=== PATIENT | female | born 1980 | race Caucasian/White ===

== ENCOUNTER 2017-09-28 14:11 | Emergency (ER) | payer OTHER ==
[2017-09-28 14:19] VITALS: BP 116/61; PULSE 97; TEMP 98.3; BMI 20.3
--- NOTE | 2017-09-28 15:08 | PDOC ---
History of Present Illness - General Chief Complaint: Injury Stated Complaint: Injury left hand/forarm Time Seen by Provider: 09/28/17 14:47 History Source: Patient Exam Limitations: No Limitations - History of Present Illness Initial Comments: 09/28/17 15:03 CHIEF COMPLAINT: Left lateral wrist bruise and pain. HISTORY OF PRESENT ILLNESS: Patient is a 37-year-old female, denies any significant medical history currently on no medication reports yesterday hit left lateral wrist against the doorway. Now with bruise to area. Received patient with Barrett wrap on area there is no swelling, no deformity, no erythema. Occurred: reports: yesterday Severity: reports: moderate Upper Extremity Pain Location: left: wrist Method of Injury: reports: direct blow Modifying Factors: improves with: None Extremity Pain Location - Extremity Pain Location Extremity Pain Locations: left: other Past History - Past Medical History Allergies/Adverse Reactions: Allergies Allergy/AdvReac Type Severity Reaction Status Date / Time acetaminophen [From Tylenol] Allergy Verified 09/28/17 14:19 codeine Allergy Rash Verified 01/27/16 17:29 Home Medications: Ambulatory Orders Abacavir/Dolutegravir/Lamivudi [Triumeq Tablet] 1 each PO DAILY #30 tablet 02/18 Ibuprofen [Motrin -] 400 mg PO TID PRN #40 tablet 02/19/16 Loratadine [Claritin -] 10 mg PO DAILY #30 tablet 02/19/16 Multivitamin with Minerals [Icaps Plus] 1 each PO DAILY #30 tablet 02/19/16 Sulfamethoxazole/Trimethoprim [Bactrim Ds -] 1 tab PO WEEKLY #12 tablet COPD: No Diabetes: No Thyroid Disease: Yes (10/04 thyroid u/s: nodular goiter, suspicious for underlying thyroiditis) - Immunization History Immunization Up to Date: Yes - Suicide/Smoking/Psychosocial Hx Smoking History: Current every day smoker Have you smoked in the past 12 months: Yes Number of Cigarettes Smoked Daily: 20 Cigars Per Day: 0 Information on smoking cessation initiated: Yes 'Breaking Loose' booklet given: 01/27/16 Hx Alcohol Use: No Drug/Substance Use Hx: No Substance Use Type: None Hx Substance Use Treatment: No Review of Systems - Review of Systems Constitutional: No: Symptoms Reported HEENTM: No: Symptoms Reported Respiratory: No: Symptoms reported Cardiac (ROS): No: Symptoms Reported ABD/GI: No: Symptoms Reported : No: Symptoms Reported Musculoskeletal: No: Joint Pain, Joint Swelling Integumentary: Yes: Bruising. No: Erythema Neurological: No: Symptoms reported, Paresthesia, Tingling, Tremors Hematologic/Lymphatic: No: Symptoms Reported All Other Systems: Reviewed and Negative *Physical Exam - Vital Signs Last Vital Signs Temp Pulse Resp BP Pulse Ox 98.3 F 97 H 18 116/61 100 09/28/17 14:17 09/28/17 14:17 09/28/17 14:17 09/28/17 14:17 09/28/17 14:17 - Physical Exam General Appearance: Yes: Appropriately Dressed. No: Apparent Distress Respiratory/Chest: positive: Lungs Clear, Normal Breath Sounds Extremity: negative: Swelling, Erythema Integumentary: positive: Bruising. negative: Swelling, Ecchymosis Neurologic: positive: Alert, Normal Mood/Affect Procedures - Splinting Splint Location: Left: Wrist Pre-Proc Neuro Vasc Exam: normal Hand-Made Type: orthoglass Splint Type: Yes: Short Arm Post-Proc Neuro Vasc Exam: normal Barrett Bandage: 2" Sling: No Complications: No Post splint xray: No Good repositioning: No ED Treatment Course - RADIOLOGY Radiology Studies Ordered: Category Date Time Status WRIST-LEFT [RAD] Stat Radiology 09/28/17 14:51 Ordered Medical Decision Making - Medical Decision Making 09/28/17 15:06 A/P: Patient with injury to left wrist. There is a bruise noted to left lateral wrist there is no deformity no erythema or edema. Patient sent to x-ray. 09/28/17 15:29 X-ray demonstrates a possible triquetral fracture only seen on lateral view not area of tenderness. I will place splint, patient to follow-up with orthopedics for reevaluation. Ice and elevate, Motrin for pain. *DC/Admit/Observation/Transfer Diagnosis at time of Disposition: Left wrist injury Qualifiers: Encounter type: initial encounter Qualified Code(s): S69.92XA - Unspecified injury of left wrist, hand and finger(s), initial encounter - Discharge Dispostion Disposition: HOME Condition at time of disposition: Stable Admit: No - Referrals Referrals: Lis Ferguson MOTION STUDY ANALYST [Primary Care Provider] - - Patient Instructions Additional Instructions: 1. Please return to the emergency department with any redness, swelling, increased pain, or any other concerns. 2. Keep splint on until tomorrow evaluate pain level 3. Please follow up in the office of Dr. Wilson within a week if pain persists. 4. No weightbearing 5. Ice and elevate when at rest. 6. Motrin for pain - Post Discharge Activity Forms/Work/School Notes: Back to Work
== END 2017-09-28 16:05 | disposition home or self-care (01) ==
LOC: JERFT 14:11
PROC: 2W3DX1Z Immobilization of Left Lower Arm using Splint (ICD-10-PCS; principal; 2017-09-28)
DX: S69.82XA Other specified injuries of left wrist, hand and finger(s), initial encounter (principal); W22.8XXA Striking against or struck by other objects, initial encounter; Y93.89 Activity, other specified; Y92.89 Other specified places as the place of occurrence of the external cause; Y99.8 Other external cause status; E04.1 Nontoxic single thyroid nodule
CPT/HCPCS: 29125; 73110-TC-LR-FY; 99281-25

== ENCOUNTER 2017-10-29 19:03 | Inpatient (IN) | payer OTHER ==
[2017-10-29] MEDS ORDERED: IBUPROFEN 600 MG TABLET (FP) PO ONE (19:19)
--- NOTE | 2017-10-29 19:20 | PDOC ---
Rapid Medical Evaluation Time Seen by Provider: 10/29/17 19:15 Medical Evaluation: Allergies Allergy/AdvReac Type Severity Reaction Status Date / Time acetaminophen [From Tylenol] Allergy Verified 09/28/17 14:19 codeine Allergy Rash Verified 01/27/16 17:29 10/29/17 19:16 I have performed a brief in-person evaluation of this patient. The patient presents with a chief complaint of: fever nasal congestion and bodyaches Pertinent physical exam findings: Lungs CTAB. Multiple aphthous ulcers present in oropharynx I have ordered the following: upreg, Motrin The patient will proceed to the ED for further evaluation. Discharge Disposition - Diagnosis Fever - Referrals - Patient Instructions - Post Discharge Activity
[2017-10-29 19:22] VITALS: BMI 19.5
[2017-10-29] MEDS ORDERED: SODIUM CHLORIDE 1,000 ML IV STA ×2 (20:42→20:43)
[2017-10-29] MEDS ORDERED: ACETAMINOPHEN 325 MG TABLET (FP) PO ONE (20:43)
--- NOTE | 2017-10-29 20:43 | PDOC ---
History of Present Illness - General History Source: Patient <EthanelzbietaAshwin - Last Filed: 10/30/17 00:55> - General History Source: Patient Exam Limitations: No Limitations - History of Present Illness Initial Comments: 10/29/17 20:48 The patient is a 37 year old female with a significant PMH of goiter and HIV who presents to the emergency department with 2-3 days of generalized malaise, fever, sore throat, dry cough, and body aches. The patient notes she was previously on Truvada but does not take it anymore. The patient states shes recently moved to [place] from [place] and does not have a PCP she follows with yet. The patient denies chest pain, shortness of breath, headache and dizziness. Denies fever, chills, nausea, vomit, diarrhea and constipation. Denies dysuria, frequency, urgency and hematuria. Allergies: Codeine. Past surgical history: . Social history: Current everyday smoker. No reported alcohol or drug use. PCP: Dr. Lis Ferguson <Calvin Hilario - Last Filed: 10/30/17 01:19> - General Chief Complaint: SIRS, Suspected/Possible Stated Complaint: FATIGUE Time Seen by Provider: 10/29/17 19:15 Past History - Past Medical History COPD: No Diabetes: No Thyroid Disease: Yes (10/04 thyroid u/s: nodular goiter, suspicious for underlying thyroiditis) - Immunization History Immunization Up to Date: Yes - Suicide/Smoking/Psychosocial Hx Smoking History: Current every day smoker Have you smoked in the past 12 months: Yes Number of Cigarettes Smoked Daily: 20 Cigars Per Day: 0 Information on smoking cessation initiated: No 'Breaking Loose' booklet given: 01/27/16 Hx Alcohol Use: No Drug/Substance Use Hx: No Substance Use Type: None Hx Substance Use Treatment: No <Ashwin García - Last Filed: 10/30/17 00:55> <Calvin Hilario - Last Filed: 10/30/17 01:19> - Past Medical History Allergies/Adverse Reactions: Allergies Allergy/AdvReac Type Severity Reaction Status Date / Time codeine Allergy Rash Verified 10/29/17 19:17 Home Medications: Ambulatory Orders Acetaminophen [Tylenol] 650 mg PO QID PRN 10/29/17 Azithromycin [Zithromax -] 250 mg PO UTDICT #6 tab 10/29/17 Emtricitabine/Tenofovir (Tdf) [Truvada 200 mg-300 mg Tablet] 1 each PO DAILY # 30 tablet 10/29/17 Ibuprofen [Motrin] 600 mg PO TID #30 tablet 10/29/17 Review of Systems - Review of Systems Able to Perform ROS?: Yes Comments:: 10/29/17 20:48 CONSTITUTIONAL: (+) Generalized malaise. (+) Fever. (+) Body aches. Absent: chills, diaphoresis, generalized weakness, loss of appetite HEENT: (+) Sore throat. Absent: rhinorrhea, nasal congestion, throat pain, throat swelling, difficulty swallowing, mouth swelling, ear pain, eye pain, visual Changes CARDIOVASCULAR: Absent: chest pain, syncope, palpitations, irregular heart rate, lightheadedness , peripheral edema RESPIRATORY: (+) Dry cough. Absent: shortness of breath, dyspnea with exertion, orthopnea, wheezing, stridor , hemoptysis GASTROINTESTINAL: Absent: abdominal pain, abdominal distension, nausea, vomiting, diarrhea, constipation, melena, hematochezia GENITOURINARY: Absent: dysuria, frequency, urgency, hesitancy, hematuria, flank pain, genital pain MUSCULOSKELETAL: Absent: myalgia, arthralgia, joint swelling SKIN: Absent: rash, itching, pallor HEMATOLOGIC/IMMUNOLOGIC: Absent: easy bleeding, easy bruising, lymphadenopathy, frequent infections ENDOCRINE: Absent: unexplained weight gain, unexplained weight loss, heat intolerance, cold intolerance NEUROLOGIC: Absent: headache, focal weakness or paresthesias, dizziness, unsteady gait, seizure, mental status changes, bladder or bowel incontinence PSYCHIATRIC: Absent: anxiety, depression, suicidal or homicidal ideation, hallucinations. <Calvin Hilario - Last Filed: 10/30/17 01:19> *Physical Exam - Vital Signs Last Vital Signs Temp Pulse Resp BP Pulse Ox 101.2 F H 130 H 18 99/35 98 10/29/17 19:20 10/29/17 19:20 10/29/17 19:20 10/29/17 19:20 10/29/17 19:20 <Ashwin García - Last Filed: 10/30/17 00:55> - Vital Signs Last Vital Signs Temp Pulse Resp BP Pulse Ox 101.2 F H 130 H 18 99/35 98 10/29/17 19:20 10/29/17 19:20 10/29/17 19:20 10/29/17 19:20 10/29/17 19:20 - Physical Exam Comments: 10/29/17 20:48 GENERAL: (+) Mild distress. Well developed, well nourished. Awake and alert. HEENT: (+) Dry oral mucosa. (+) White plaques on hard palate and tongue. Normocephalic, atraumatic. PERRLA, EOMI. No conjunctival pallor. Sclera are non- icteric.Oropharynx is clear. NECK: Supple. Full ROM. No JVD. Carotid pulses 2+ and symmetric, without bruits. No thyromegaly. No lymphadenopathy. CARDIOVASCULAR: Regular rate and rhythm. No murmurs, rubs, or gallops. Distal pulses are 2+ and symmetric. PULMONARY: No evidence of respiratory distress. Lungs clear to auscultation bilaterally. No wheezing, rales or rhonchi. ABDOMINAL: Soft. Non-tender. Non-distended. No rebound or guarding. No organomegaly. Normoactive bowel sounds. MUSCULOSKELETAL Normal range of motion at all joints. No bony deformities or tenderness. No CVA tenderness. EXTREMITIES: No cyanosis. No clubbing. No edema. No calf tenderness. SKIN: Warm and dry. Normal capillary refill. No rashes. No jaundice. NEUROLOGICAL: Alert, awake, appropriate. Cranial nerves 2-12 intact. No deficits to light touch and temperature in face, upper extremities and lower extremities. No motor deficits in the in face, upper extremities and lower extremities. Normoreflexic in the upper and lower extremities. Normal speech. Toes are downgoing bilaterally. Gait is normal without ataxia. PSYCHIATRIC: Cooperative. Good eye contact. Appropriate mood and affect. <Calvin Hilario - Last Filed: 10/30/17 01:19> Heart Score/ECG Review #1 10/30/17 01:19 EKG done at 1:14 Vent rate 89 bpm Normal sinus rhythm Nonspecific T wave abnormality Abnormal ECG <Calvin Hilario - Last Filed: 10/30/17 01:19> ED Treatment Course - LABORATORY CBC & Chemistry Diagram: 10/29/17 21:05 10/29/17 21:05 <Ashwin García - Last Filed: 10/30/17 00:55> - LABORATORY CBC & Chemistry Diagram: 10/29/17 21:05 10/29/17 21:05 <Calvin Hilario - Last Filed: 10/30/17 01:19> Medical Decision Making - Medical Decision Making 10/30/17 00:55 Dr. García: The scribe's documentation has been prepared under my direction and personally reviewed by me in its entirery. I confirm that the note above accurately reflects all work, treatment, procedures, and medical decision making performed by me. Pt found to have a YESY infiltrate. However, pt feels better than when she presented WBC 8.4, Lactic Acid 1. will admit <Ashwin García - Last Filed: 10/30/17 00:55> *DC/Admit/Observation/Transfer - Discharge Dispostion Decision to Admit order: Yes <Ashwin García - Last Filed: 10/30/17 00:55> - Attestations Scribe Attestion: 10/29/17 20:49 Documentation prepared by Calvin Hilario, acting as medical field representative for Ashwin García DO. <Calvin Hilario - Last Filed: 10/30/17 01:19> Diagnosis at time of Disposition: Fever, Human immunodeficiency virus (HIV) disease Pneumonia Qualifiers: Pneumonia type: due to unspecified organism Laterality: left Lung location: upper lobe of lung Qualified Code(s): J18.1 - Lobar pneumonia, unspecified organism - Discharge Dispostion Condition at time of disposition: Stable
[2017-10-29 21:18] LABS: HEMATOCRIT 27.9 % (32.4-45.2); HEMOGLOBIN 9.3 GM/dL (10.7-15.3); MCHC 33.2 g/dl (32.0-36.0); MEAN CELL VOLUME 84.4 fl (80-96); MEAN PLT VOLUME 7.6 fl (7.5-11.1); PLATELET COUNT 210 K/MM3 (134-434); RDW 14.2 % (11.6-15.6); WHITE BLOOD COUNT 8.4 K/mm3 (4.0-10.0)
[2017-10-29 21:46] LABS: ALBUMIN 2.5 g/dl (3.4-5.0); ANION GAP 7 (8-16); BLOOD UREA NITROGEN 16 mg/dL (7-18); CALCIUM 7.8 mg/dL (8.5-10.1); CHLORIDE 103 mmol/L (98-107); CO2 25 mmol/L (21-32); CREATININE 0.7 mg/dL (0.55-1.02); GLUCOSE,RANDOM 75 mg/dL (74-106); POTASSIUM 4.1 mmol/L (3.5-5.1); SGOT/AST 24 U/L (15-37); SGPT/ALT 7 U/L (12-78); SODIUM 135 mmol/L (136-145)
[2017-10-29 21:48] LABS: ALK PHOS 87 U/L (45-117); BILIRUBIN,TOTAL 0.3 mg/dL (0.2-1.0); TOT PROT 9.3 g/dl (6.4-8.2)
[2017-10-29 22:42] LABS: PLATELET ESTIMATE ADEQUATE
[2017-10-29 23:18] LABS: URINE APPEARANCE SLCLOUDY; URINE BILIRUBIN NEGATIVE (<2.0 mg/dL); URINE COLOR AMBER; URINE GLUCOSE (UA) NEGATIVE (NEGATIVE); URINE KETONE TRACE (NEGATIVE); URINE LEUK ESTERASE NEGATIVE (NEGATIVE); URINE NITRITE NEGATIVE (NEGATIVE); URINE PROTEIN 3+ (NEGATIVE)
[2017-10-29 23:33] LABS: EPI CELLS FEW /HPF (FEW); URINE MUCUS MANY
[2017-10-29] MEDS ORDERED: AZITHROMYCIN 250 MG TABLET PO STA (23:43)
[2017-10-29] MEDS ORDERED: IBUPROFEN 600 MG TABLET (FP) PO STA (23:43)
[2017-10-29] MEDS ORDERED: AZITHROMYCIN 250 MG TABLET ONE (23:52)
[2017-10-30] MEDS ORDERED: PIPERACILLIN/TAZOB 3.375 GM 3.375 GM in DEXTROSE 5%-WATER - 50 ML IVPB ONE (00:50)
[2017-10-30] MEDS ORDERED: VANCOMYCIN 1,000 MG in DEXTROSE 5%-WATER - 250 ML IVPB ONE (00:50)
--- NOTE | 2017-10-30 01:18 | HP ---
CHIEF COMPLAINT: fever and body aches x2 PCP: Dr. Lis Ferguson HISTORY OF PRESENT ILLNESS: 37yo woman, active smoker, with PMH of goiter and HIV (dx Jun 2008, not on HAART for past 2years, CD4/viral counts unknown) who presents to the ED with fever, malaise, myalgia, and sore throat for the past 2 days. She had previously followed at [facility] with Dr. Ferguson and was taking Truvada. However , she moved to [place] and has not seen a PCP for the past 1-2 years. She recently moved back to the area, and is planning to re-establish care at [facility]. Patient reports noticing white plaques on the roof of her mouth this morning. Denies odynophagia or dysphagia. No prior h/o thrush. Her last hospitalization was when she had 8 years ago. Patent denies any recent sick contacts. Denies chest pain, ROMERO, dizziness, n/v. Denies dysuria, frequency, urgency and hematuria. ED course was notable: (1) VS: T 101.2, HR 130, BP 99/35, RR 18, pSaO2 98% on RA (1) Chest CT: YESY PNA, bilateral diffuse GGO (2) s/p 2L NS (3) Received 1x Azithromycin 500mg, Vanco 1gm, and Zosyn 3.375mg Recent Travel: none PAST MEDICAL HISTORY: 09/2013 thyroid u/s: nodular goiter, suspicious for underlying thyroiditis 01/2016 - Shingles treated with Acyclovir PAST SURGICAL HISTORY: - 2008 BTL 2008 LEEP 11/2010 Social History: Smoking: current, 1ppd x 20years Alcohol: rare Drugs: Marijuana, no IVDU Family History: non-contributory Allergies codeine Allergy (Verified 10/29/17 19:17) --> Rash HOME MEDICATIONS: None REVIEW OF SYSTEMS CONSTITUTIONAL: fever, chills, generalized weakness, malaise Absent: diaphoresis, loss of appetite, weight change HEENT: +throat pain Absent: rhinorrhea, nasal congestion, , throat swelling, difficulty swallowing , mouth swelling, ear pain, eye pain, visual changes CARDIOVASCULAR: Absent: chest pain, syncope, palpitations, irregular heart rate, lightheadedness , peripheral edema RESPIRATORY: Absent: cough, shortness of breath, dyspnea with exertion, orthopnea, wheezing, stridor, hemoptysis GASTROINTESTINAL: Absent: abdominal pain, abdominal distension, nausea, vomiting, diarrhea, constipation, melena, hematochezia GENITOURINARY: Absent: dysuria, frequency, urgency, hesitancy, hematuria, flank pain, genital pain MUSCULOSKELETAL: +myalgia Absent: arthralgia, joint swelling, back pain, neck pain SKIN: Absent: rash, itching, pallor HEMATOLOGIC/IMMUNOLOGIC: Absent: easy bleeding, easy bruising, lymphadenopathy, frequent infections ENDOCRINE: Absent: unexplained weight gain, unexplained weight loss, heat intolerance, cold intolerance NEUROLOGIC: Absent: headache, focal weakness or paresthesias, dizziness, unsteady gait, seizure, mental status changes, bladder or bowel incontinence PSYCHIATRIC: Absent: anxiety, depression, suicidal or homicidal ideation, hallucinations. PHYSICAL EXAMINATION Vital Signs - 24 hr 10/29/17 19:20 Temperature 101.2 F H Pulse Rate 130 H Respiratory 18 Rate Blood Pressure 99/35 O2 Sat by Pulse 98 Oximetry (%) GENERAL: thin, young appearing woman, lying comfortably in bed, aaox3 HEENT: sclera anicteric, conjunctiva clear, non-scrabble white plaques on hard palate, tongue and posterior oropharynx, dry MM, +cold sore on R side of lower lip NECK: supple, no nuchal rigidity LUNGS: CTAB, no wheezing, rales or rhonchi appreciated, no accessory muscle use HEART: rrr, normal s1/s2, no m/r/g ABDOMEN: soft, NTND MUSCULOSKELETAL: Normal range of motion at all joints LOWER EXTREMITIES: 2+ DP pulses, wwp, no edema SKIN: well-healed pigmented Shingle scars on L anterior thurston CBC, BMP 10/29/17 21:05 10/29/17 21:05 Hepatic Panel Total Bilirubin 0.3 mg/dL (0.2-1.0) 10/29/17 21:05 AST 24 U/L (15-37) 10/29/17 21:05 ALT 7 U/L (12-78) L 10/29/17 21:05 Alkaline Phosphatase 87 U/L (45-117) 10/29/17 21:05 Albumin 2.5 g/dl (3.4-5.0) L 10/29/17 21:05 Microbiology 10/29/17 19:40 Nasopharyngeal Swab Influenza Types A,B Antigen (ZAC) - Preliminary 10/29/17 19:40 Nasopharyngeal Swab - Preliminary EKG: NSR, rate 89, non-specific T wave abnormality, QTc 440 ASSESSMENT/PLAN: 37yo woman with PMH of HIV (not on HAART, CD4/viral count uknown) who presents with 2 days of fever, myalgia, generalized malaise and found to be septic likely 2/2 YESY PNA. #sepsis 2/2 YESY PNA, Flu neg -ID consulted -Check final CT Chest report -Levaquin 750mg IV daily and Bactrim Ds 1 tablet daily -> first doses ordered for 10AM -Check sputum culture -Check Quantiferon Gold -Check Urine Legionella Ag, Histoplasma Urine Ag, Cryptococcal serum Ag, Respiratory viral PCR -follow up Blood and Urine Cultures -IVF NS@100cc/hr -Tylenol PRN for fever or pain #HIV -ID consulted -Check CD4 and viral counts #herpes labialis -Valacyclovir 1gm PO BID #oral candidiasis without odynophagia or dysphagia -Nystatin swish and swallow #normocytic anemia, currently menstruating, no prior h/o anemia -Check Fe studies #nicotine dependence -counseled on cessation #FEN NS@100cc/hr hypoNa noted Regular diet #PPX - HSQ #DISPO: m/s FULL code Plan d/w Dr. Angeles Humphreys MD PGY1 - Internal Medicine, Night Traveling Operator Visit type - Emergency Visit Emergency Visit: Yes ED Registration Date: 10/30/17 Care time: The patient presented to the Emergency Department on the above date and was hospitalized for further evaluation of their emergent condition. - New Patient This patient is new to me today: Yes Date on this admission: 10/30/17 - Critical Care Critical Care patient: No Hospitalist Screening - Colonoscopy Questionnaire Colonoscopy Questionnaire: Colonoscopy Questionnaire - Patient: 50 - 75 years old and never had a screening colonoscopy: No History of colon or rectal polyps, or CA: Unknown History of IBD, Crohn's disease or UC: Unknown History of abdominal radiation therapy as a child: Unknown - Relative: 1 with colon or rectal CA, or polyps at age 60 or younger: Unknown Colon or rectal CA diagnosed at age 45 or younger: Unknown Multiple relatives with colon or rectal CA: Unknown - Outcome: Screening Result: Negative Screen
[2017-10-30] MEDS ORDERED: VANCOMYCIN 1 GRAM (PRE-DOCKED) 1,000 MG/250 ML BAG IVPB ONE (01:48)
[2017-10-30] MEDS ORDERED: PIPERACILLIN/TAZOB 3.375 GM 3.375 GM/50 ML BAG IVPB ONE (01:49)
--- NOTE | 2017-10-30 06:22 | PN ---
Teaching Attending Note Name of Resident: Jaimee Humphreys ATTENDING PHYSICIAN STATEMENT I saw and evaluated the patient. Chart, data, imaging reviewed. I reviewed the resident's note and discussed the case with the resident. I agree with the resident's findings and plan as documented. SUBJECTIVE: 37yo woman, active smoker, with PMH of goiter and HIV (dx Jun 2008), off HAART for past 2years due to noncompliance, CD4/viral counts unknown at this time) who c/o fevers, chills, and malaise past several days. Patient has been to [place] recently, but denied any travels anywhere else. Denied any recent sick contacts. Previously followed at [facility] for HIV care. CT scan in ER showed left upper lobe infiltrate, given vancomycin, zosyn, azithromycin. OBJECTIVE: Last Vital Signs Temp Pulse Resp BP Pulse Ox 101.2 F H 130 H 18 99/35 98 10/29/17 19:20 10/29/17 19:20 10/29/17 19:20 10/29/17 19:20 10/29/17 19:20 general - cachectic, nontoxic appearing heent- at, nc, no icteric sclera , oral thrush, herpes labialis neck -supple cv- s1+s2+rrr chest - cta b/l abdomen- soft, nt, bs+ ext- no pedal edema skin- no rashes msk- no joint pain Abnormal Lab Results 10/29/17 10/29/17 10/29/17 21:05 21:05 23:02 RBC 3.30 L D Hgb 9.3 L D Hct 27.9 L D Neutrophils % (Manual) 88.0 H Lymphocytes % (Manual) 3.0 L Sodium 135 L Anion Gap 7 L Calcium 7.8 L ALT 7 L Total Protein 9.3 H Albumin 2.5 L Urine Protein 3+ H Urine Ketones Trace H Urine Blood 2+ H Urine Urobilinogen 2.[address] reviewed by me- left upper lobe infiltrate with b/l ground glass changes pending official read ASSESSMENT AND PLAN: #37yo woman HIV+ off ART for 1-2 years due to noncompliance with sepsis likely secondary to CAP as evidenced by left lung infiltrate on ct. Hemodynamically stable. Unknown cd4 count. +oral thrush. -admit to med/surg -blood cultures x2 -sputum culture -histoplasma urine ag -cryptococcal serum ag -quantiferon gold -respiratory multiplex pxr -levofloxacin 750mg IV q24hrs -ID consult -cd4 count -hiv viral pcr -nystatin swish and swallow -valtrex for herpes labialis -IV fluid hydration -supplemental 02 via nasal cannula DVT ppx- heparin sc -
[2017-10-30] MEDS ORDERED: HEPARIN NA (PORCINE) 5,000 UNITS/ML 1ML VIAL ONE (06:33)
[2017-10-30] MEDS: SODIUM CHLORIDE 1,000 ML IV SCH ×2 (06:35→17:39)
[2017-10-30] MEDS: NYSTATIN 500,000 UNITS/5 ML SUSPENSION PO SCH ×2 (06:35→13:00)
[2017-10-30] MEDS: HEPARIN NA (PORCINE) 5,000 UNITS/ML 1ML VIAL SQ SCH ×3 (06:40→21:48)
[2017-10-30] MEDS ORDERED: ACETAMINOPHEN 325 MG TABLET (FP) ONE ×2 (07:02→14:20)
[2017-10-30] MEDS: ACETAMINOPHEN 325 MG TABLET (FP) PO PRN ×2 (07:03→19:38)
[2017-10-30 07:20] LABS: BASO % 0.6 % (0-2.0); HEMOGLOBIN 9.3 GM/dL (10.7-15.3); LYMPH % 2.7 % (8-40); MCHC 33.2 g/dl (32.0-36.0); MEAN CELL VOLUME 84.3 fl (80-96); MEAN PLT VOLUME 8.3 fl (7.5-11.1); MONO % 3.2 % (3.8-10.2); NEUT % 93.5 % (42.8-82.8); PLATELET COUNT 214 K/MM3 (134-434); RBC 3.32 M/mm3 (3.60-5.2); RDW 14.5 % (11.6-15.6); WHITE BLOOD COUNT 8.7 K/mm3 (4.0-10.0)
[2017-10-30 08:46] LABS: CHLORIDE 107 mmol/L (98-107); GLUCOSE,RANDOM 71 mg/dL (74-106); POTASSIUM 3.9 mmol/L (3.5-5.1); SODIUM 137 mmol/L (136-145)
[2017-10-30 08:54] LABS: ALBUMIN 2.3 g/dl (3.4-5.0); ALK PHOS 95 U/L (45-117); ANION GAP 8 (8-16); BILIRUBIN,TOTAL 0.4 mg/dL (0.2-1.0); BLOOD UREA NITROGEN 15 mg/dL (7-18); CALCIUM 7.5 mg/dL (8.5-10.1); CO2 22 mmol/L (21-32); CREATININE 0.7 mg/dL (0.55-1.02); SGOT/AST 28 U/L (15-37); SGPT/ALT 8 U/L (12-78); TOT PROT 8.5 g/dl (6.4-8.2)
[2017-10-30] MEDS: valACYclovir HCL 500 MG TABLET (FP) PO SCH ×2 (09:26→22:50)
[2017-10-30] MEDS ORDERED: SULFAMETHOXAZOLE/TRIMETHOPRIM 800MG/160MG D.S. TABLET PO SCH (10:00)
--- NOTE | 2017-10-30 11:42 | EKG ---
Test Reason : Blood Pressure : / mmHG Vent. Rate : 089 BPM Atrial Rate : 089 BPM P-R Int : 118 ms QRS Dur : 082 ms QT Int : 362 ms P-R-T Axes : 045 068 004 degrees QTc Int : 440 ms NORMAL SINUS RHYTHM NONSPECIFIC T WAVE ABNORMALITY ABNORMAL ECG NO PREVIOUS ECGS AVAILABLE Confirmed by GOPI JAIN, FAMILIA ([id number]) on 10/30/2017 11:41:54 AM Referred By: Confirmed By:FAMILIA NGUYỄN MD
--- NOTE | 2017-10-30 13:41 | CON.ID ---
Consult Referred by:: Dr. Humphreys Reason for Consultation:: Pneumonia, HIV - History of Present Illness History of Present Illness: The patient is a 37 yo f w/ PMH HIV who comes into the ED c/o fever, malaise and sore throat for the past 2 days. She also endorses thrush. Patient was following at the [facility], then was lost to follow up for 2 years after moving to [place]. Last CD4 count 151 in 01/2016. Per the patient, she has not been compliant with her ART or PCP prophylaxis for the past 2 years. CXR shows YESY mass/consolidation. CT Chest shows the same with b/l infiltrates. Patient c/o left shoulder pain on examination. Patient denies CP, Cough, hemoptysis, abdominal pain, diarrhea. - History Source History Provided By: Patient Limitations to Obtaining History: No Limitations - Past Medical History ...LMP: 08/13/13 Infectious Disease: Yes: HIV - Alcohol/Substance Use Hx Alcohol Use: No History of Substance Use: reports: None - Smoking History Smoking history: Current every day smoker Have you smoked in the past 12 months: Yes Aproximately how many cigarettes per day: 20 Home Medications - Allergies Allergies/Adverse Reactions: Allergies Allergy/AdvReac Type Severity Reaction Status Date / Time codeine Allergy Rash Verified 10/29/17 19:17 - Home Medications Home Medications: Ambulatory Orders Acetaminophen [Tylenol] 650 mg PO QID PRN 10/29/17 Azithromycin [Zithromax -] 250 mg PO UTDICT #6 tab 10/29/17 Emtricitabine/Tenofovir (Tdf) [Truvada 200 mg-300 mg Tablet] 1 each PO DAILY # 30 tablet 10/29/17 Ibuprofen [Motrin] 600 mg PO TID #30 tablet 10/29/17 Review of Systems - Review of Systems Constitutional: reports: Chills, Fever, Unintentional Wgt. Loss (25 lbs) HENT: reports: Other (white rash in mouth). denies: Difficult Swallowing Cardiovascular: reports: Shortness of Breath. denies: Chest Pain, Edema, Palpitations Respiratory: reports: SOB. denies: Cough, Hemoptysis, SOB on Exertion, Wheezing Gastrointestinal: denies: Abdominal Pain, Constipation, Diarrhea, Vomiting Neurological: reports: No Symptoms Physical Exam Vital Signs: Vital Signs Temperature 99.3 F 10/30/17 07:08 Pulse Rate 107 H 10/30/17 07:08 Respiratory Rate 18 10/30/17 07:08 Blood Pressure 104/66 10/30/17 07:08 O2 Sat by Pulse Oximetry (%) 97 10/30/17 07:08 Constitutional: Yes: Well Nourished, No Distress, Calm HENT: Yes: Atraumatic, Normocephalic, Other (white dots on patient's palate and tongue. no pharyneal erythema.) Cardiovascular: Yes: Regular Rate and Rhythm, S1, S2. No: JVD, Gallop, Murmur, Rub Respiratory: Yes: Regular, Diminished (breath sounds diminished on left in mid lung and at base) Gastrointestinal: Yes: Normal Bowel Sounds, Soft. No: Tenderness Extremities: Yes: Other (scarring on b/l lower extremities from previous zoster infection) Neurological: Yes: Alert, Oriented Psychiatric: Yes: Alert, Oriented Labs: CBC, BMP 10/30/17 06:44 10/30/17 06:44 Imaging - Results Chest X-ray: Report Reviewed, Image Reviewed Cat Scan: Report Reviewed, Image Reviewed Assessment/Plan The patient is a 37 yo f w/ PMH HIV admitted for YESY consolidation as well as fever and chills. #YESY consolidation -Patient immunocompromised with YESY consolidation; must r/o TB @ cover for PCP, CAP -airborne iso -Sputum AFB/JENNIE x3 -quantiferon gold -urines for PNA -Vancomycin 1g Q24 -Zosyn 3.375g Q8H -Azithromycin 500mg daily -f/u BCx, UCx -f/u crypto agen -flu swab negative #Oral candidiasis -nystatin swish and swallow #AIDS -last CD4+ 151 in january -Patient off ART for >2years -will hold off on resuming ART for now -Case D/w Dr. Cornelius
--- NOTE | 2017-10-30 15:03 | PN ---
<Marilyn Pardo - Last Filed: 10/30/17 15:30> Physical Exam: SUBJECTIVE: Patient seen and examined. She is complaining odf pain on the left side of her chest. She also reports SOB and occasional cough. OBJECTIVE: Vital Signs Period Temp Pulse Resp BP Sys/Leiva Pulse Ox Last 24 Hr 99.3 F-101.2 F 107-130 16-18 99-104/35-67 97-98 GENERAL: The patient is awake, alert, and fully oriented, in no acute distress. HEAD: Normal with no signs of trauma. EYES: PERRL, extraocular movements intact, sclera anicteric, conjunctiva clear. ENT: oropharynx: white spots, thrush on hard palate and tongue, cold sore on lower lip, moist mucous membranes. NECK: Trachea midline, full range of motion, supple. LUNGS: Breath sounds equal, rhonchi on left side of the chest, no wheezes, no accessory muscle use. HEART: Regular rate and rhythm, S1, S2 without murmur, rub or gallop. ABDOMEN: Soft, nontender, nondistended, normoactive bowel sounds, no guarding, no rebound, no hepatosplenomegaly, no masses. EXTREMITIES: 2+ pulses, no edema. NEUROLOGICAL: Normal speech, gait not observed. PSYCH: Normal mood, normal affect. SKIN: Warm, dry, normal turgor. Laboratory Results - last 24 hr 10/29/17 10/29/17 10/29/17 21:05 21:05 21:05 WBC 8.4 D RBC 3.30 L D Hgb 9.3 L D Hct 27.9 L D MCV 84.4 MCH 28.0 MCHC 33.2 RDW 14.2 Plt Count 210 D MPV 7.6 D Neutrophils % No Result Required. Neutrophils % (Manual) 88.0 H Band Neutrophils % 3.0 Lymphocytes % No Result Required. Lymphocytes % (Manual) 3.0 L Monocytes % Monocytes % (Manual) 6 Eosinophils % Basophils % Platelet Estimate Adequate Sodium 135 L Potassium 4.1 Chloride 103 Carbon Dioxide 25 Anion Gap 7 L BUN 16 Creatinine 0.7 Creat Clearance w eGFR > 60 Random Glucose 75 Lactic Acid 1.0 Calcium 7.8 L Ferritin Total Bilirubin 0.3 AST 24 ALT 7 L Alkaline Phosphatase 87 Total Protein 9.3 H Albumin 2.5 L Urine Color Urine Appearance Urine pH Ur Specific [place] Urine Protein Urine Glucose (UA) Urine Ketones Urine Blood Urine Nitrite Urine Bilirubin Urine Urobilinogen Ur Leukocyte Esterase Urine WBC (Auto) Urine RBC (Auto) Ur Epithelial Cells Urine Mucus Urine HCG, Qual 10/29/17 10/29/17 10/30/17 23:02 23:02 06:44 WBC 8.7 RBC 3.32 L Hgb 9.3 L Hct 28.0 L MCV 84.3 MCH 28.0 MCHC 33.2 RDW 14.5 Plt Count 214 MPV 8.3 Neutrophils % 93.5 H D Neutrophils % (Manual) Band Neutrophils % Lymphocytes % 2.7 L D Lymphocytes % (Manual) Monocytes % 3.2 L Monocytes % (Manual) Eosinophils % 0.0 D Basophils % 0.6 D Platelet Estimate Sodium Potassium Chloride Carbon Dioxide Anion Gap BUN Creatinine Creat Clearance w eGFR Random Glucose Lactic Acid Calcium Ferritin Total Bilirubin AST ALT Alkaline Phosphatase Total Protein Albumin Urine Color Lana Urine Appearance Slcloudy Urine pH 5.0 Ur Specific [place] 1.034 Urine Protein 3+ H Urine Glucose (UA) Negative Urine Ketones Trace H Urine Blood 2+ H Urine Nitrite Negative Urine Bilirubin Negative Urine Urobilinogen 2.0 H Ur Leukocyte Esterase Negative Urine WBC (Auto) 8 Urine RBC (Auto) 34 Ur Epithelial Cells Few Urine Mucus Many Urine HCG, Qual Negative 10/30/17 10/30/17 06:44 06:44 WBC RBC Hgb Hct MCV MCH MCHC RDW Plt Count MPV Neutrophils % Neutrophils % (Manual) Band Neutrophils % Lymphocytes % Lymphocytes % (Manual) Monocytes % Monocytes % (Manual) Eosinophils % Basophils % Platelet Estimate Sodium 137 Potassium 3.9 Chloride 107 Carbon Dioxide 22 Anion Gap 8 BUN 15 Creatinine 0.7 Creat Clearance w eGFR > 60 Random Glucose 71 L Lactic Acid Calcium 7.5 L Ferritin 105.979 Total Bilirubin 0.4 D AST 28 ALT 8 L Alkaline Phosphatase 95 Total Protein 8.5 H Albumin 2.3 L Urine Color Urine Appearance Urine pH Ur Specific [place] Urine Protein Urine Glucose (UA) Urine Ketones Urine Blood Urine Nitrite Urine Bilirubin Urine Urobilinogen Ur Leukocyte Esterase Urine WBC (Auto) Urine RBC (Auto) Ur Epithelial Cells Urine Mucus Urine HCG, Qual Active Medications Generic Name Dose Route Start Last Admin Trade Name Freq PRN Reason Stop Dose Admin Acetaminophen 650 mg 10/30/17 02:42 10/30/17 07:03 Tylenol - PO 650 mg Q4H PRN Administration PAIN 1-5 OR FEVER Heparin Sodium (Porcine) 5,000 unit 10/30/17 06:00 10/30/17 06:40 Heparin - SQ 5,000 unit TID JASWANT Administration Sodium Chloride 1,000 mls @ 100 mls/hr 10/30/17 02:45 10/30/17 06:35 Normal Saline - IV 100 mls/hr ASDIR JASWANT Administration Azithromycin 250 mg/ Dextrose 250 mls @ 250 mls/hr 10/30/17 15:00 IVPB DAILY JASWANT Nystatin 500,000 units 10/30/17 06:00 10/30/17 13:00 Nystatin Oral Suspension - PO 500,000 units Q6HPO JASWANT Administration Trimethoprim/Sulfamethoxazole 1 each 10/30/17 10:00 10/30/17 09:25 Bactrim Ds - PO 1 each DAILY JASWANT Administration Valacyclovir HCl 1,000 mg 10/30/17 10:00 10/30/17 09:26 Valtrex - PO 1,000 mg BID JASWANT Administration ASSESSMENT/PLAN: The patient is a 37yo woman with PMH of HIV (not on HAART, CD4/viral count unknown) who presents with 2 days of fever, myalgia, generalized malaise and found to be septic 2/2 YESY PNA. Sepsis due to YESY PNA, possible TB: -the patient had CT chest that visualized consolidation on left side -ID consulted -continue Zosyn IV, AZT and Vancomycin -Check sputum culture AFB sputum ordered -Quantiferon Gold -follow up Urine Legionella Ag, Crypto ag -follow up Blood and Urine Cultures -IVF NS@100cc/hr -Tylenol PRN for fever or pain HIV -ID consulted, the patient is known to our ID group but hasn't been following for 2 years -not on medications -follow up CD4 and viral counts -Bactrim three times a week for prophylaxis herpes: -Valacyclovir 1gm PO BID Oral candidiasis: -cont Nystatin FEN: NS@100cc/hr low Na Regular diet PPX - Hep SQ DISPO: m/s Problem List - Problems (1) Acute URI Code(s): J06.9 - ACUTE UPPER RESPIRATORY INFECTION, UNSPECIFIED (2) Fever Code(s): R50.9 - FEVER, UNSPECIFIED (3) Human immunodeficiency virus (HIV) disease Code(s): B20 - HUMAN IMMUNODEFICIENCY VIRUS [HIV] DISEASE (4) Pneumonia Code(s): J18.9 - PNEUMONIA, UNSPECIFIED ORGANISM QualifierTitle: Pneumonia type: due to unspecified organism Laterality: left Lung location: upper lobe of lung Qualified Code(s): J18.1 - Lobar pneumonia, unspecified organism (5) Fatigue Code(s): R53.83 - OTHER FATIGUE (6) Nicotine dependence Code(s): F17.200 - NICOTINE DEPENDENCE, UNSPECIFIED, UNCOMPLICATED (7) Sciatica Code(s): M54.30 - SCIATICA, UNSPECIFIED SIDE QualifierTitle: Laterality: left Qualified Code(s): M54.32 - Sciatica, left side Visit type - Emergency Visit Emergency Visit: Yes ED Registration Date: 10/30/17 Care time: The patient presented to the Emergency Department on the above date and was hospitalized for further evaluation of their emergent condition. - New Patient This patient is new to me today: Yes Date on this admission: 10/30/17 - Critical Care Critical Care patient: No <Sowmya Sharpe - Last Filed: 10/30/17 18:12> Physical Exam: Patient is c/o of having SOB and occasional cough. Patient has not been complaint with her meds. Vital Signs Temperature 99.3 F 10/30/17 15:48 Pulse Rate 108 H 10/30/17 15:48 Respiratory Rate 20 10/30/17 15:48 Blood Pressure 105/66 10/30/17 15:48 O2 Sat by Pulse Oximetry (%) 97 10/30/17 16:04 CBCD WBC 8.7 K/mm3 (4.0-10.0) 10/30/17 06:44 RBC 3.32 M/mm3 (3.60-5.2) L 10/30/17 06:44 Hgb 9.3 GM/dL (10.7-15.3) L 10/30/17 06:44 Hct 28.0 % (32.4-45.2) L 10/30/17 06:44 MCV 84.3 fl (80-96) 10/30/17 06:44 MCHC 33.2 g/dl (32.0-36.0) 10/30/17 06:44 RDW 14.5 % (11.6-15.6) 10/30/17 06:44 Plt Count 214 K/MM3 (134-434) 10/30/17 06:44 MPV 8.3 fl (7.5-11.1) 10/30/17 06:44 CMP Sodium 137 mmol/L (136-145) 10/30/17 06:44 Potassium 3.9 mmol/L (3.5-5.1) 10/30/17 06:44 Chloride 107 mmol/L (98-107) 10/30/17 06:44 Carbon Dioxide 22 mmol/L (21-32) 10/30/17 06:44 Anion Gap 8 (8-16) 10/30/17 06:44 BUN 15 mg/dL (7-18) 10/30/17 06:44 Creatinine 0.7 mg/dL (0.55-1.02) 10/30/17 06:44 Creat Clearance w eGFR > 60 (>60) 10/30/17 06:44 Random Glucose 71 mg/dL (74-106) L 10/30/17 06:44 Calcium 7.5 mg/dL (8.5-10.1) L 10/30/17 06:44 Total Bilirubin 0.4 mg/dL (0.2-1.0) D 10/30/17 06:44 AST 28 U/L (15-37) 10/30/17 06:44 ALT 8 U/L (12-78) L 10/30/17 06:44 Alkaline Phosphatase 95 U/L (45-117) 10/30/17 06:44 Total Protein 8.5 g/dl (6.4-8.2) H 10/30/17 06:44 Albumin 2.3 g/dl (3.4-5.0) L 10/30/17 06:44 Current Medications Generic Name Dose Route Start Last Admin Trade Name Freq PRN Reason Stop Dose Admin Acetaminophen 650 mg 10/30/17 02:42 10/30/17 07:03 Tylenol - PO 650 mg Q4H PRN Administration PAIN 1-5 OR FEVER Heparin Sodium (Porcine) 5,000 unit 10/30/17 06:00 10/30/17 14:00 Heparin - SQ Not Given TID JASWANT Sodium Chloride 1,000 mls @ 100 mls/hr 10/30/17 02:45 10/30/17 17:39 Normal Saline - IV 100 mls/hr ASDIR JASWANT Administration Azithromycin 250 mg/ Dextrose 250 mls @ 250 mls/hr 10/30/17 15:00 10/30/17 17 :39 IVPB 250 mls/hr DAILY JASWANT Administration Vancomycin HCl 1,000 mg/ 250 mls @ 150 mls/hr 10/30/17 17:00 Dextrose IVPB BID@0500,1700 JASWANT Protocol Piperacillin Sod/Tazobactam 50 mls @ 100 mls/hr 10/30/17 18:00 Sod 3.375 gm/ Dextrose IVPB Q8H-IV JASWANT Protocol Nystatin 500,000 units 10/30/17 06:00 10/30/17 13:00 Nystatin Oral Suspension - PO 500,000 units Q6HPO JASWANT Administration Trimethoprim/Sulfamethoxazole 1 each 10/31/17 10:00 Bactrim Ds - PO MoWeFr@1000 JASWANT Valacyclovir HCl 1,000 mg 10/30/17 10:00 10/30/17 09:26 Valtrex - PO 1,000 mg BID JASWANT Administration Home Medications Medication Instructions Recorded Acetaminophen [Tylenol] 650 mg PO QID PRN 10/29/17 PE; per resident's note ASSESSMENT/PLAN: This patient is a 37yo woman with PMHx of HIV ;aids now (not on HAART, CD4/ viral count unknown) who presents with 2 days of fever, myalgia, generalized malaise and was found to be septic with YESY PNA. #Sepsis due to YESY PNA, cannot r/o TB: since on Chest Ct upper lobe consolidation, Discussed with ID ,continue Zosyn IV, AZT and Vancomycin sputum culture AFB x3 , Quantiferon Gold, on TB isolation ,follow up Urine Legionella Ag, Crypto ag, follow up Blood and Urine Cultures, continue IVF #HIV with Aids now ; the patient is known to our ID group but hasn't been following for 2 years, not on medications, Unknown CD4 and viral counts -Bactrim three times a week for prophylaxis , vancyclovir since house oral lesions. # herpes:Valacyclovir 1gm PO BID #Oral candidiasis: swish and swallow; Nystatin DVt Px: Heparin
[2017-10-30] MEDS ORDERED: PIPERACILLIN/TAZOB 3.375 GM 3.375 GM in DEXTROSE 5%-WATER - 50 ML IVPB SCH (15:45)
--- NOTE | 2017-10-30 16:03 | PN ---
Teaching Attending Note Name of Resident: Varinder Gupta ATTENDING PHYSICIAN STATEMENT I saw and evaluated the patient. I reviewed the resident's note and discussed the case with the resident. I agree with the resident's findings and plan as documented. SUBJECTIVE: OBJECTIVE: ASSESSMENT AND PLAN: Bilateral pulmonary infiltrates YESY mass-like consolidation ? necrotizing pneumonia ? TB ? neoplasm AIDS non- compliant with ART AFB isolation Sputum AFB,c/s Quantiferon Legionella ag Empiric zosyn/ vancomycin/ zithromax Bactrim DS TIW Hold ART
[2017-10-30] MEDS: AZITHROMYCIN IVPB 250 MG in DEXTROSE 5%-WATER - 250 ML IVPB SCH (17:39)
[2017-10-30] MEDS ORDERED: PIPERACILLIN/TAZOBACTAM 3.375 GM VIAL IVPB ONE (19:31)
[2017-10-30] MEDS ORDERED: DEXTROSE 5%-WATER - 50 ML IVPB ONE (19:31)
[2017-10-30] MEDS: PIPERACILLIN/TAZOB 3.375 GM 3.375 GM in DEXTROSE 5%-WATER - 50 ML IVPB SCH (19:34)
[2017-10-30] MEDS: VANCOMYCIN 1,000 MG in DEXTROSE 5%-WATER - 250 ML IVPB SCH (20:07)
[2017-10-31] MEDS: NYSTATIN 500,000 UNITS/5 ML SUSPENSION PO SCH ×5 (00:36→17:51)
[2017-10-31] MEDS ORDERED: VANCOMYCIN 1,000 MG in DEXTROSE 5%-WATER - 250 ML IVPB SCH (01:00)
[2017-10-31] MEDS ORDERED: PIPERACILLIN/TAZOBACTAM 3.375 GM VIAL IVPB ONE ×3 (02:27→17:22)
[2017-10-31] MEDS ORDERED: DEXTROSE 5%-WATER - 50 ML IVPB ONE ×3 (02:27→17:22)
[2017-10-31] MEDS: PIPERACILLIN/TAZOB 3.375 GM 3.375 GM in DEXTROSE 5%-WATER - 50 ML IVPB SCH ×3 (02:40→17:50)
[2017-10-31] MEDS: SODIUM CHLORIDE 1,000 ML IV SCH ×2 (02:45→05:36)
[2017-10-31] MEDS: VANCOMYCIN 1,000 MG in DEXTROSE 5%-WATER - 250 ML IVPB SCH ×2 (05:35→19:10)
[2017-10-31] MEDS: HEPARIN NA (PORCINE) 5,000 UNITS/ML 1ML VIAL SQ SCH ×4 (05:35→21:45)
[2017-10-31 07:40] LABS: BASO % 0.3 % (0-2.0); EOS % 0.1 % (0-4.5); HEMATOCRIT 22.2 % (32.4-45.2); HEMOGLOBIN 7.5 GM/dL (10.7-15.3); LYMPH % 7.5 % (8-40); MCH 28.1 pg (25.7-33.7); MCHC 33.5 g/dl (32.0-36.0); MEAN CELL VOLUME 83.9 fl (80-96); MEAN PLT VOLUME 7.7 fl (7.5-11.1); MONO % 4.6 % (3.8-10.2); NEUT % 87.5 % (42.8-82.8); PLATELET COUNT 172 K/MM3 (134-434); RBC 2.65 M/mm3 (3.60-5.2); RDW 14.2 % (11.6-15.6); WHITE BLOOD COUNT 4.4 K/mm3 (4.0-10.0)
[2017-10-31 08:01] LABS: CHLORIDE 109 mmol/L (98-107); POTASSIUM 3.6 mmol/L (3.5-5.1); SODIUM 137 mmol/L (136-145)
[2017-10-31 08:24] LABS: ALBUMIN 1.8 g/dl (3.4-5.0); ALK PHOS 88 U/L (45-117); ANION GAP 7 (8-16); BILIRUBIN,TOTAL 0.3 mg/dL (0.2-1.0); BLOOD UREA NITROGEN 6 mg/dL (7-18); CALCIUM 7.2 mg/dL (8.5-10.1); CO2 21 mmol/L (21-32); CREATININE 0.5 mg/dL (0.55-1.02); GLUCOSE,RANDOM 96 mg/dL (74-106); SGOT/AST 23 U/L (15-37); SGPT/ALT 8 U/L (12-78); TOT PROT 7.2 g/dl (6.4-8.2)
[2017-10-31] MEDS ORDERED: PT OWN MED DRAWER 7, Y5N ONE ×3 (09:48→21:35)
[2017-10-31] MEDS ORDERED: SULFAMETHOXAZOLE/TRIMETHOPRIM 800MG/160MG D.S. TABLET PO SCH (10:00)
[2017-10-31] MEDS: valACYclovir HCL 500 MG TABLET (FP) PO SCH ×2 (10:08→21:40)
[2017-10-31] MEDS: AZITHROMYCIN IVPB 250 MG in DEXTROSE 5%-WATER - 250 ML IVPB SCH (12:39)
--- NOTE | 2017-10-31 13:47 | PN ---
Progress Note, Physician History of Present Illness: The patient was seen and examined at bedside. Patient states she feels better today and her breathing is improved. She states she is coughing up sputum - Current Medication List Current Medications: Active Medications Acetaminophen (Tylenol -) 650 mg PO Q4H PRN PRN Reason: PAIN 1-5 OR FEVER Last Admin: 10/30/17 19:38 Dose: 650 mg Heparin Sodium (Porcine) (Heparin -) 5,000 unit SQ TID [facility] Last Admin: 10/31/17 05:35 Dose: 5,000 unit Sodium Chloride (Normal Saline -) 1,000 mls @ 100 mls/hr IV ASDIR [facility] Last Admin: 10/31/17 05:36 Dose: 100 mls/hr Azithromycin 250 mg/ Dextrose 250 mls @ 250 mls/hr IVPB DAILY [facility] Last Admin: 10/31/17 12:39 Dose: 250 mls/hr Vancomycin HCl 1,000 mg/ (Dextrose) 250 mls @ 150 mls/hr IVPB BID@0500,1700 [facility] PRN Reason: Protocol Last Admin: 10/31/17 05:35 Dose: 150 mls/hr Piperacillin Sod/Tazobactam (Sod 3.375 gm/ Dextrose) 50 mls @ 100 mls/hr IVPB Q8H-IV JASWANT PRN Reason: Protocol Last Admin: 10/31/17 10:09 Dose: 100 mls/hr Nystatin (Nystatin Oral Suspension -) 500,000 units PO Q6HPO [facility] Last Admin: 10/31/17 12:40 Dose: 500,000 units Trimethoprim/Sulfamethoxazole (Bactrim Ds -) 1 each PO MoWeFr@1000 [facility] Last Admin: 10/31/17 10:07 Dose: 1 each Valacyclovir HCl (Valtrex -) 1,000 mg PO BID [facility] Last Admin: 10/31/17 10:08 Dose: 1,000 mg - Objective Vital Signs: Vital Signs Temperature 99.8 F H 10/31/17 06:00 Pulse Rate 99 H 10/31/17 06:00 Respiratory Rate 20 10/31/17 06:00 Blood Pressure 122/70 10/31/17 06:00 O2 Sat by Pulse Oximetry (%) 97 10/30/17 20:50 Constitutional: Yes: Well Nourished, No Distress, Calm Neck: Yes: Supple, Trachea Midline Labs: CBC, BMP 10/31/17 06:30 10/31/17 06:30 Assessment/Plan The patient is a 37 yo f w/ PMH HIV admitted for YESY consolidation as well as fever and chills. #YESY consolidation -Patient immunocompromised with YESY consolidation; must r/o TB @ cover for PCP, CAP -airborne iso -f/u Sputum AFB/JENNIE x3 -quantiferon gold pending -urines for PNA -Vancomycin 1g Q24 -Zosyn 3.375g Q8H -Azithromycin 500mg daily -f/u BCx, UCx -f/u crypto agen -flu swab negative #Oral candidiasis -nystatin swish and swallow #AIDS -last CD4+ 151 in january -Patient off ART for >2years -will hold off on resuming ART for now -f/u rpt CD4+ -Case D/w Dr. Cornelius
--- NOTE | 2017-10-31 15:39 | PN ---
Teaching Attending Note Name of Resident: Varinder Gupta ATTENDING PHYSICIAN STATEMENT I saw and evaluated the patient. I reviewed the resident's note and discussed the case with the resident. I agree with the resident's findings and plan as documented. SUBJECTIVE: Feeling better Now with productive cough L pleuritic chest pain resolved No c/o fever/ chills OBJECTIVE: Thin female No acute distress Breathing non-labored afebrile cor S1S2 + rhonchi bilaterally no edema ASSESSMENT AND PLAN: Dense YESY pneumonia AIDS Await sputum AFB, c/s Continue zithromax/ zosyn/ vancomycin Vancomycin level PCP prophylaxis
--- NOTE | 2017-10-31 18:43 | PN ---
Progress Note (short form) - Note Progress Note: Subjective: The patient was seen and examined at the bedside, she has no complaints at this time. She reports her left upper chest pain has resolved Current Medications Generic Name Dose Route Start Last Admin Trade Name Megan PRN Reason Stop Dose Admin Acetaminophen 650 mg 10/30/17 02:42 10/30/17 19:38 Tylenol - PO 650 mg Q4H PRN Administration PAIN 1-5 OR FEVER Heparin Sodium (Porcine) 5,000 unit 10/30/17 06:00 10/31/17 14:59 Heparin - SQ 5,000 unit TID JASWANT Administration Sodium Chloride 1,000 mls @ 100 mls/hr 10/30/17 02:45 10/31/17 05:36 Normal Saline - IV 100 mls/hr ASDIR JASWANT Administration Azithromycin 250 mg/ Dextrose 250 mls @ 250 mls/hr 10/30/17 15:00 10/31/17 12 :39 IVPB 250 mls/hr DAILY JASWANT Administration Vancomycin HCl 1,000 mg/ 250 mls @ 150 mls/hr 10/30/17 17:00 10/31/17 05:35 Dextrose IVPB 150 mls/hr BID@0500,1700 JASWANT Administration Protocol Piperacillin Sod/Tazobactam 50 mls @ 100 mls/hr 10/30/17 18:00 10/31/17 17:50 Sod 3.375 gm/ Dextrose IVPB 100 mls/hr Q8H-IV JASWANT Administration Protocol Nystatin 500,000 units 10/30/17 06:00 10/31/17 17:51 Nystatin Oral Suspension - PO 500,000 units Q6HPO JASWANT Administration Trimethoprim/Sulfamethoxazole 1 each 10/31/17 10:00 10/31/17 10:07 Bactrim Ds - PO 1 each MoWeFr@1000 JASWANT Administration Valacyclovir HCl 1,000 mg 10/30/17 10:00 10/31/17 10:08 Valtrex - PO 1,000 mg BID JASWANT Administration Objective: Vital Signs Period Temp Pulse Resp BP Sys/Leiva Pulse Ox Last 24 Hr 99.8 F 99 20 122/70 97 Physical Exam: General: NAD, A&Ox3 Lungs: CTA bilaterally Heart: RRR, S1S2 Abd: Soft, non-tender, non-distended. Normoactive bowel sounds Ext: Warm, well-perfused. 2+ DP/PT bilaterally Neuro: CN 2-12 intact CBCD WBC 4.4 K/mm3 (4.0-10.0) D 10/31/17 06:30 RBC 2.65 M/mm3 (3.60-5.2) L D 10/31/17 06:30 Hgb 7.5 GM/dL (10.7-15.3) L D 10/31/17 06:30 Hct 22.2 % (32.4-45.2) L D 10/31/17 06:30 MCV 83.9 fl (80-96) 10/31/17 06:30 MCHC 33.5 g/dl (32.0-36.0) 10/31/17 06:30 RDW 14.2 % (11.6-15.6) 10/31/17 06:30 Plt Count 172 K/MM3 (134-434) 10/31/17 06:30 MPV 7.7 fl (7.5-11.1) 10/31/17 06:30 CMP Sodium 137 mmol/L (136-145) 10/31/17 06:30 Potassium 3.6 mmol/L (3.5-5.1) 10/31/17 06:30 Chloride 109 mmol/L (98-107) H 10/31/17 06:30 Carbon Dioxide 21 mmol/L (21-32) 10/31/17 06:30 Anion Gap 7 (8-16) L 10/31/17 06:30 BUN 6 mg/dL (7-18) L 10/31/17 06:30 Creatinine 0.5 mg/dL (0.55-1.02) L 10/31/17 06:30 Creat Clearance w eGFR > 60 (>60) 10/31/17 06:30 Random Glucose 96 mg/dL (74-106) 10/31/17 06:30 Calcium 7.2 mg/dL (8.5-10.1) L 10/31/17 06:30 Total Bilirubin 0.3 mg/dL (0.2-1.0) D 10/31/17 06:30 AST 23 U/L (15-37) 10/31/17 06:30 ALT 8 U/L (12-78) L 10/31/17 06:30 Alkaline Phosphatase 88 U/L (45-117) 10/31/17 06:30 Total Protein 7.2 g/dl (6.4-8.2) 10/31/17 06:30 Albumin 1.8 g/dl (3.4-5.0) L 10/31/17 06:30 Microbiology 10/31/17 10:45 Sputum - Expectorated Gram Stain - Final 10/31/17 10:45 Sputum - Expectorated Direct Acid Fast Bacilli Smear - Final 10/29/17 23:02 Urine - Urine Clean Catch Urine Culture - Final NO GROWTH OBTAINED 10/29/17 21:05 Blood - Peripheral Venous Blood Culture - Preliminary NO GROWTH OBTAINED AFTER 24 HOURS, INCUBATION TO CONTINUE FOR 4 DAYS. 10/29/17 21:05 Blood - Peripheral Venous Blood Culture - Preliminary NO GROWTH OBTAINED AFTER 24 HOURS, INCUBATION TO CONTINUE FOR 4 DAYS. 10/30/17 06:10 Serum Cryptococcal Antigen - Preliminary 10/29/17 19:40 Nasopharyngeal Swab Influenza Types A,B Antigen (ZAC) - Final 10/29/17 19:40 Nasopharyngeal Swab - Final Assessment: This is a 37 year old female with PMHx of HIV (not on HAART for 1.5 years, last CD4 151), goiter, who presented to the ED with fever, malaise, and sore throat x2 weeks. Plan: 1) Sepsis 2/2 YESY pneumonia - Continue zithromax - Continue Zosyn - Continue Vancomcyin - Continue to r/o tb: afb x1 negative, f/u quant gold - Blood cultures with NGTD - Appreciate ID consult 2) HIV - Has not taken HAART x1.5 years - CD4 26 - Hold ART for now per ID - Continue Bactrim for pcp prophylaxis 3) F/E/N: - Regular diet - Monitor electrolytes 4) Prophylaxis: - OOB ambulating - Heparin 5,000u sq tid 5) Dispo: - Requires continued inpatient care CODE STATUS: FULL CODE Visit type - Emergency Visit Emergency Visit: Yes ED Registration Date: 10/30/17 Care time: The patient presented to the Emergency Department on the above date and was hospitalized for further evaluation of their emergent condition. - New Patient This patient is new to me today: Yes Date on this admission: 10/31/17 - Critical Care Critical Care patient: No
[2017-10-31] MEDS: ACETAMINOPHEN 325 MG TABLET (FP) PO PRN (21:40)
[2017-11-01] MEDS ORDERED: PIPERACILLIN/TAZOBACTAM 3.375 GM VIAL IVPB ONE ×3 (00:37→17:06)
[2017-11-01] MEDS ORDERED: DEXTROSE 5%-WATER - 50 ML IVPB ONE ×3 (00:37→17:07)
[2017-11-01] MEDS: SODIUM CHLORIDE 1,000 ML IV SCH ×2 (01:22→17:44)
[2017-11-01] MEDS: PIPERACILLIN/TAZOB 3.375 GM 3.375 GM in DEXTROSE 5%-WATER - 50 ML IVPB SCH ×3 (01:30→17:45)
[2017-11-01] MEDS: VANCOMYCIN 1,000 MG in DEXTROSE 5%-WATER - 250 ML IVPB SCH ×2 (04:03→17:45)
[2017-11-01] MEDS: HEPARIN NA (PORCINE) 5,000 UNITS/ML 1ML VIAL SQ SCH ×3 (06:17→21:17)
[2017-11-01] MEDS: NYSTATIN 500,000 UNITS/5 ML SUSPENSION PO SCH ×4 (06:17→17:45)
[2017-11-01 08:00] LABS: BASO % 0.4 % (0-2.0); EOS % 0.3 % (0-4.5); HEMATOCRIT 22.4 % (32.4-45.2); HEMOGLOBIN 7.5 GM/dL (10.7-15.3); LYMPH % 10.8 % (8-40); MCH 28.1 pg (25.7-33.7); MCHC 33.7 g/dl (32.0-36.0); MEAN CELL VOLUME 83.5 fl (80-96); MEAN PLT VOLUME 7.7 fl (7.5-11.1); MONO % 7.9 % (3.8-10.2); NEUT % 80.6 % (42.8-82.8); PLATELET COUNT 185 K/MM3 (134-434); RBC 2.68 M/mm3 (3.60-5.2); RDW 14.3 % (11.6-15.6); WHITE BLOOD COUNT 2.2 K/mm3 (4.0-10.0)
[2017-11-01 08:31] LABS: CHLORIDE 112 mmol/L (98-107); POTASSIUM 3.6 mmol/L (3.5-5.1); SODIUM 141 mmol/L (136-145)
[2017-11-01 08:56] LABS: ANION GAP 7 (8-16); BLOOD UREA NITROGEN 4 mg/dL (7-18); CALCIUM 7.4 mg/dL (8.5-10.1); CO2 22 mmol/L (21-32); CREATININE 0.5 mg/dL (0.55-1.02); GLUCOSE,RANDOM 82 mg/dL (74-106)
[2017-11-01] MEDS: AZITHROMYCIN IVPB 250 MG in DEXTROSE 5%-WATER - 250 ML IVPB SCH (09:53)
[2017-11-01] MEDS: valACYclovir HCL 500 MG TABLET (FP) PO SCH ×2 (09:53→21:17)
--- NOTE | 2017-11-01 12:10 | PN ---
Progress Note (short form) - Note Progress Note: pleuritic shoulder pain resolved still with cough fevers trending down Vital Signs Period Temp Pulse Resp BP Sys/Leiva Pulse Ox Last 24 Hr 98 F-98.3 F 71-76 20-20 105-130/60-66 98 cor-rrr lungs clear abd soft,nt ext no edema CBC, BMP 11/01/17 07:15 11/01/17 07:15 cd4 26 Microbiology 10/31/17 10:45 Sputum - Expectorated Gram Stain - Final 10/31/17 10:45 Sputum - Expectorated Sputum Culture - Preliminary NORMAL RESPIRATORY NASIR 10/29/17 21:05 Blood - Peripheral Venous Blood Culture - Preliminary NO GROWTH OBTAINED AFTER 48 HOURS, INCUBATION TO CONTINUE FOR 3 DAYS. 10/29/17 21:05 Blood - Peripheral Venous Blood Culture - Preliminary NO GROWTH OBTAINED AFTER 48 HOURS, INCUBATION TO CONTINUE FOR 3 DAYS. 10/31/17 10:45 Sputum - Expectorated Direct Acid Fast Bacilli Smear - Final 10/29/17 23:02 Urine - Urine Clean Catch Urine Culture - Final NO GROWTH OBTAINED 10/30/17 06:10 Serum Cryptococcal Antigen - Preliminary 10/29/17 19:40 Nasopharyngeal Swab Influenza Types A,B Antigen (ZAC) - Final 10/29/17 19:40 Nasopharyngeal Swab - Final quantiferon indeterminate a/p YESY pneumonia f/u sputum afb/naat sputum culture normal nasir will d/c vancomycin needs urinary antigens- will reorder continue zosyn/zithromax AIDS on bactrim for PCP prophylaxis has been out of care for two years
--- NOTE | 2017-11-01 16:34 | PN ---
Progress Note (short form) - Note Progress Note: Subjective: The patient was seen and examined at the bedside, she has no complaints at this time. Current Medications Generic Name Dose Route Start Last Admin Trade Name Freq PRN Reason Stop Dose Admin Acetaminophen 650 mg 10/30/17 02:42 10/31/17 21:40 Tylenol - PO 650 mg Q4H PRN Administration PAIN 1-5 OR FEVER Heparin Sodium (Porcine) 5,000 unit 10/30/17 06:00 11/01/17 14:29 Heparin - SQ 5,000 unit TID JASWANT Administration Sodium Chloride 1,000 mls @ 100 mls/hr 10/30/17 02:45 11/01/17 01:22 Normal Saline - IV 100 mls/hr ASDIR JASWANT Administration Azithromycin 250 mg/ Dextrose 250 mls @ 250 mls/hr 10/30/17 15:00 11/01/17 09 :53 IVPB 250 mls/hr DAILY JASWANT Administration Vancomycin HCl 1,000 mg/ 250 mls @ 150 mls/hr 10/30/17 17:00 11/01/17 04:03 Dextrose IVPB 150 mls/hr BID@0500,1700 JASWANT Administration Protocol Piperacillin Sod/Tazobactam 50 mls @ 100 mls/hr 10/30/17 18:00 11/01/17 09:53 Sod 3.375 gm/ Dextrose IVPB 100 mls/hr Q8H-IV JASWANT Administration Protocol Nystatin 500,000 units 10/30/17 06:00 11/01/17 12:22 Nystatin Oral Suspension - PO 500,000 units Q6HPO JASWANT Administration Trimethoprim/Sulfamethoxazole 1 each 10/31/17 10:00 10/31/17 10:07 Bactrim Ds - PO 1 each MoWeFr@1000 JASWANT Administration Valacyclovir HCl 1,000 mg 10/30/17 10:00 11/01/17 09:53 Valtrex - PO 1,000 mg BID JASWANT Administration Objective: Vital Signs Period Temp Pulse Resp BP Sys/Leiva Pulse Ox Last 24 Hr 98 F-98.6 F 71-76 20-20 105-130/60-88 98 Physical Exam: General: NAD, A&Ox3 Lungs: CTA bilaterally Heart: RRR, S1S2 Abd: Soft, non-tender, non-distended. Normoactive bowel sounds Ext: Warm, well-perfused. 2+ DP/PT bilaterally Neuro: CN 2-12 intact CBCD WBC 2.2 K/mm3 (4.0-10.0) L D 11/01/17 07:15 RBC 2.68 M/mm3 (3.60-5.2) L 11/01/17 07:15 Hgb 7.5 GM/dL (10.7-15.3) L 11/01/17 07:15 Hct 22.4 % (32.4-45.2) L 11/01/17 07:15 MCV 83.5 fl (80-96) 11/01/17 07:15 MCHC 33.7 g/dl (32.0-36.0) 11/01/17 07:15 RDW 14.3 % (11.6-15.6) 11/01/17 07:15 Plt Count 185 K/MM3 (134-434) 11/01/17 07:15 MPV 7.7 fl (7.5-11.1) 11/01/17 07:15 CMP Sodium 141 mmol/L (136-145) 11/01/17 07:15 Potassium 3.6 mmol/L (3.5-5.1) 11/01/17 07:15 Chloride 112 mmol/L (98-107) H 11/01/17 07:15 Carbon Dioxide 22 mmol/L (21-32) 11/01/17 07:15 Anion Gap 7 (8-16) L 11/01/17 07:15 BUN 4 mg/dL (7-18) L 11/01/17 07:15 Creatinine 0.5 mg/dL (0.55-1.02) L 11/01/17 07:15 Creat Clearance w eGFR > 60 (>60) 10/31/17 06:30 Random Glucose 82 mg/dL (74-106) 11/01/17 07:15 Calcium 7.4 mg/dL (8.5-10.1) L 11/01/17 07:15 Total Bilirubin 0.3 mg/dL (0.2-1.0) D 10/31/17 06:30 AST 23 U/L (15-37) 10/31/17 06:30 ALT 8 U/L (12-78) L 10/31/17 06:30 Alkaline Phosphatase 88 U/L (45-117) 10/31/17 06:30 Total Protein 7.2 g/dl (6.4-8.2) 10/31/17 06:30 Albumin 1.8 g/dl (3.4-5.0) L 10/31/17 06:30 Microbiology 11/01/17 12:30 Urine For Antigen Detection Legionella Antigen - Final 11/01/17 12:30 Urine For Antigen Detection Streptococcus pneumoniae Antigen (M - Final 10/31/17 10:45 Sputum - Expectorated Gram Stain - Final 10/31/17 10:45 Sputum - Expectorated Sputum Culture - Preliminary NORMAL RESPIRATORY GERBER 10/29/17 21:05 Blood - Peripheral Venous Blood Culture - Preliminary NO GROWTH OBTAINED AFTER 48 HOURS, INCUBATION TO CONTINUE FOR 3 DAYS. 10/29/17 21:05 Blood - Peripheral Venous Blood Culture - Preliminary NO GROWTH OBTAINED AFTER 48 HOURS, INCUBATION TO CONTINUE FOR 3 DAYS. 10/31/17 10:45 Sputum - Expectorated Direct Acid Fast Bacilli Smear - Final 10/29/17 23:02 Urine - Urine Clean Catch Urine Culture - Final NO GROWTH OBTAINED 10/30/17 06:10 Serum Cryptococcal Antigen - Preliminary 10/29/17 19:40 Nasopharyngeal Swab Influenza Types A,B Antigen (ZAC) - Final 10/29/17 19:40 Nasopharyngeal Swab - Final Assessment: This is a 37 year old female with PMHx of HIV (not on HAART for 1.5 years, last CD4 151), goiter, who presented to the ED with fever, malaise, and sore throat x2 weeks. Plan: 1) Sepsis 2/2 YESY pneumonia - Continue zithromax - Continue Zosyn - Discontinue Vancomcyin - F/u urine legionella Ag - Continue to r/o tb: afb x1 negative, f/u quant gold - Blood cultures with NGTD - Appreciate ID consult 2) HIV - Has not taken HAART x2 years - CD4 26 - Hold ART for now per ID - Continue Bactrim for pcp prophylaxis 3) F/E/N: - Regular diet - Monitor electrolytes 4) Prophylaxis: - OOB ambulating - Heparin 5,000u sq tid 5) Dispo: - Requires continued inpatient care CODE STATUS: FULL CODE Visit type - Emergency Visit Emergency Visit: Yes ED Registration Date: 10/30/17 Care time: The patient presented to the Emergency Department on the above date and was hospitalized for further evaluation of their emergent condition. - New Patient This patient is new to me today: No - Critical Care Critical Care patient: No
[2017-11-01] MEDS: ACETAMINOPHEN 325 MG TABLET (FP) PO PRN (18:56)
[2017-11-02] MEDS ORDERED: PIPERACILLIN/TAZOBACTAM 3.375 GM VIAL IVPB ONE ×2 (00:30→09:44)
[2017-11-02] MEDS ORDERED: DEXTROSE 5%-WATER - 50 ML IVPB ONE ×2 (00:30→09:44)
[2017-11-02] MEDS: NYSTATIN 500,000 UNITS/5 ML SUSPENSION PO SCH ×3 (00:30→12:55)
[2017-11-02] MEDS: PIPERACILLIN/TAZOB 3.375 GM 3.375 GM in DEXTROSE 5%-WATER - 50 ML IVPB SCH ×2 (02:03→09:57)
[2017-11-02] MEDS: VANCOMYCIN 1,000 MG in DEXTROSE 5%-WATER - 250 ML IVPB SCH (04:23)
[2017-11-02] MEDS: SODIUM CHLORIDE 1,000 ML IV SCH ×2 (05:41→07:56)
[2017-11-02] MEDS: HEPARIN NA (PORCINE) 5,000 UNITS/ML 1ML VIAL SQ SCH (05:43)
[2017-11-02] MEDS ORDERED: MAG HYDROX/AL HYDROX/SIMETH 30 ML UNIT-DOSE CUP PO PRN (06:57)
[2017-11-02 07:29] VITALS: PULSE 76; TEMP 98.4
[2017-11-02 08:40] LABS: HEMATOCRIT 21.3 % (32.4-45.2); HEMOGLOBIN 7.1 GM/dL (10.7-15.3); MCHC 33.4 g/dl (32.0-36.0); MEAN CELL VOLUME 83.8 fl (80-96); MEAN PLT VOLUME 7.6 fl (7.5-11.1); PLATELET COUNT 195 K/MM3 (134-434); RBC 2.54 M/mm3 (3.60-5.2); RDW 14.3 % (11.6-15.6)
[2017-11-02 08:43] LABS: WHITE BLOOD COUNT 1.7 K/mm3 (4.0-10.0)
[2017-11-02 08:57] LABS: ANION GAP 9 (8-16); BLOOD UREA NITROGEN 4 mg/dL (7-18); CALCIUM 7.9 mg/dL (8.5-10.1); CHLORIDE 110 mmol/L (98-107); CO2 23 mmol/L (21-32); CREATININE 0.7 mg/dL (0.55-1.02); GLUCOSE,RANDOM 154 mg/dL (74-106); POTASSIUM 3.5 mmol/L (3.5-5.1); SODIUM 142 mmol/L (136-145)
--- NOTE | 2017-11-02 09:11 | PN ---
Progress Note (short form) - Note Progress Note: Subjective: The patient was seen and examined at the bedside, she is tearful and would like to leave against medical advice because it is Mother's Day. Instructed the patient that we have not completed the workup to r/o Tb (on one AFB negative) and that quant gold was indeterminate Worsening leukopenia: 1.7 today Current Medications Generic Name Dose Route Start Last Admin Trade Name Freq PRN Reason Stop Dose Admin Acetaminophen 650 mg 10/30/17 02:42 11/01/17 18:56 Tylenol - PO 650 mg Q4H PRN Administration PAIN 1-5 OR FEVER Al Hydroxide/Mg Hydroxide 30 ml 11/02/17 06:57 11/02/17 07:02 Mylanta Oral Suspension - PO 30 ml Q6H PRN Administration DYSPEPSIA Heparin Sodium (Porcine) 5,000 unit 10/30/17 06:00 11/02/17 05:43 Heparin - SQ Not Given TID JASWANT Sodium Chloride 1,000 mls @ 100 mls/hr 10/30/17 02:45 11/02/17 07:56 Normal Saline - IV 100 mls/hr ASDIR JASWANT Administration Azithromycin 250 mg/ Dextrose 250 mls @ 250 mls/hr 10/30/17 15:00 11/01/17 09 :53 IVPB 250 mls/hr DAILY JASWANT Administration Vancomycin HCl 1,000 mg/ 250 mls @ 150 mls/hr 10/30/17 17:00 11/02/17 04:23 Dextrose IVPB 150 mls/hr BID@0500,1700 JASWANT Administration Protocol Piperacillin Sod/Tazobactam 50 mls @ 100 mls/hr 10/30/17 18:00 11/02/17 02:03 Sod 3.375 gm/ Dextrose IVPB 100 mls/hr Q8H-IV JASWANT Administration Protocol Nystatin 500,000 units 10/30/17 06:00 11/02/17 05:42 Nystatin Oral Suspension - PO 500,000 units Q6HPO JASWANT Administration Trimethoprim/Sulfamethoxazole 1 each 10/31/17 10:00 10/31/17 10:07 Bactrim Ds - PO 1 each MoWeFr@1000 JASWANT Administration Valacyclovir HCl 1,000 mg 10/30/17 10:00 11/01/17 21:17 Valtrex - PO 1,000 mg BID JASWANT Administration Objective: Vital Signs Period Temp Pulse Resp BP Sys/Leiva Pulse Ox Last 24 Hr 98 F-98.6 F 76-78 19-20 110-124/62-88 98-98 Physical Exam: General: NAD, A&Ox3 Lungs: CTA bilaterally Heart: RRR, S1S2 Abd: Soft, non-tender, non-distended. Normoactive bowel sounds Ext: Warm, well-perfused. 2+ DP/PT bilaterally Neuro: CN 2-12 intact CBCD WBC 1.7 K/mm3 (4.0-10.0) L* 11/02/17 08:00 RBC 2.54 M/mm3 (3.60-5.2) L 11/02/17 08:00 Hgb 7.1 GM/dL (10.7-15.3) L 11/02/17 08:00 Hct 21.3 % (32.4-45.2) L 11/02/17 08:00 MCV 83.8 fl (80-96) 11/02/17 08:00 MCHC 33.4 g/dl (32.0-36.0) 11/02/17 08:00 RDW 14.3 % (11.6-15.6) 11/02/17 08:00 Plt Count 195 K/MM3 (134-434) 11/02/17 08:00 MPV 7.6 fl (7.5-11.1) 11/02/17 08:00 CMP Sodium 142 mmol/L (136-145) 11/02/17 08:00 Potassium 3.5 mmol/L (3.5-5.1) 11/02/17 08:00 Chloride 110 mmol/L (98-107) H 11/02/17 08:00 Carbon Dioxide 23 mmol/L (21-32) 11/02/17 08:00 Anion Gap 9 (8-16) 11/02/17 08:00 BUN 4 mg/dL (7-18) L 11/02/17 08:00 Creatinine 0.7 mg/dL (0.55-1.02) 11/02/17 08:00 Creat Clearance w eGFR > 60 (>60) 10/31/17 06:30 Random Glucose 154 mg/dL (74-106) H 11/02/17 08:00 Calcium 7.9 mg/dL (8.5-10.1) L 11/02/17 08:00 Total Bilirubin 0.3 mg/dL (0.2-1.0) D 10/31/17 06:30 AST 23 U/L (15-37) 10/31/17 06:30 ALT 8 U/L (12-78) L 10/31/17 06:30 Alkaline Phosphatase 88 U/L (45-117) 10/31/17 06:30 Total Protein 7.2 g/dl (6.4-8.2) 10/31/17 06:30 Albumin 1.8 g/dl (3.4-5.0) L 10/31/17 06:30 Microbiology 10/29/17 21:05 Blood - Peripheral Venous Blood Culture - Preliminary NO GROWTH OBTAINED AFTER 72 HOURS, INCUBATION TO CONTINUE FOR 2 DAYS. 10/29/17 21:05 Blood - Peripheral Venous Blood Culture - Preliminary NO GROWTH OBTAINED AFTER 72 HOURS, INCUBATION TO CONTINUE FOR 2 DAYS. 11/01/17 12:30 Urine For Antigen Detection Legionella Antigen - Final 11/01/17 12:30 Urine For Antigen Detection Streptococcus pneumoniae Antigen (M - Final 10/31/17 10:45 Sputum - Expectorated Gram Stain - Final 10/31/17 10:45 Sputum - Expectorated Sputum Culture - Preliminary NORMAL RESPIRATORY GERBER 10/31/17 10:45 Sputum - Expectorated Direct Acid Fast Bacilli Smear - Final 10/29/17 23:02 Urine - Urine Clean Catch Urine Culture - Final NO GROWTH OBTAINED 10/30/17 06:10 Serum Cryptococcal Antigen - Preliminary 10/29/17 19:40 Nasopharyngeal Swab Influenza Types A,B Antigen (ZAC) - Final 10/29/17 19:40 Nasopharyngeal Swab - Final Assessment: This is a 37 year old female with PMHx of HIV (not on HAART for 1.5 years, last CD4 151), goiter, who presented to the ED with fever, malaise, and sore throat x2 weeks. Plan: 1) Sepsis 2/2 YESY pneumonia - Worsening leukopenia today - Continue zithromax - Continue Zosyn - Urine legionella Ag negative - Continue to r/o tb with indeterminate quant gold: afb x1 negative, - Blood cultures with NGTD - Appreciate ID consult 2) HIV - Has not taken HAART x2 years - CD4 26 - Hold ART for now per ID - Continue Bactrim for pcp prophylaxis 3) F/E/N: - Regular diet - Monitor electrolytes 4) Prophylaxis: - OOB ambulating - Heparin 5,000u sq tid 5) Dispo: - Requires continued inpatient care CODE STATUS: FULL CODE Visit type - Emergency Visit Emergency Visit: Yes ED Registration Date: 10/30/17 Care time: The patient presented to the Emergency Department on the above date and was hospitalized for further evaluation of their emergent condition. - New Patient This patient is new to me today: No - Critical Care Critical Care patient: No
[2017-11-02] MEDS ORDERED: PT OWN MED DRAWER 7, Y5N ONE ×2 (09:44→12:47)
[2017-11-02 09:53] LABS: ANISOCYTOSIS 0; OVALOCYTE 1+; PLATELET ESTIMATE NORMAL
[2017-11-02] MEDS: valACYclovir HCL 500 MG TABLET (FP) PO SCH (09:56)
[2017-11-02 10:26] VITALS: BP 120/80
--- NOTE | 2017-11-02 11:49 | PN ---
Progress Note (short form) - Note Progress Note: refusing to stay feels well Vital Signs Period Temp Pulse Resp BP Sys/Leiva Pulse Ox Last 24 Hr 98 F-98.6 F 76-78 19-20 110-124/62-88 98-98 cor-rrr lungs clear abd soft,nt ext no edema CBC, BMP 11/02/17 08:00 11/02/17 08:00 Microbiology 10/31/17 10:45 Sputum - Expectorated Gram Stain - Final 10/31/17 10:45 Sputum - Expectorated Sputum Culture - Final Yeast Like Organism 10/29/17 21:05 Blood - Peripheral Venous Blood Culture - Preliminary NO GROWTH OBTAINED AFTER 72 HOURS, INCUBATION TO CONTINUE FOR 2 DAYS. 10/29/17 21:05 Blood - Peripheral Venous Blood Culture - Preliminary NO GROWTH OBTAINED AFTER 72 HOURS, INCUBATION TO CONTINUE FOR 2 DAYS. 11/01/17 12:30 Urine For Antigen Detection Legionella Antigen - Final 11/01/17 12:30 Urine For Antigen Detection Streptococcus pneumoniae Antigen (M - Final 10/31/17 10:45 Sputum - Expectorated Direct Acid Fast Bacilli Smear - Final 10/29/17 23:02 Urine - Urine Clean Catch Urine Culture - Final NO GROWTH OBTAINED 10/30/17 06:10 Serum Cryptococcal Antigen - Preliminary 10/29/17 19:40 Nasopharyngeal Swab Influenza Types A,B Antigen (ZAC) - Final 10/29/17 19:40 Nasopharyngeal Swab - Final quantiferon indeterminate a/p YESY pneumonia f/u sputum afb/naat times 2 sputum culture normal nasir unwilling to stay- demanding to leave will collect 3rd sputum afb today she is willing to stay home and wear a mask-I expressed my concerns for possible TB concern also for dropping WBC - again not willing to listen to my concerns for her worsening WBC and risks for sepsis states she will go to [facility] if she feels sick suggest obtaining 3rd sputum for afb stat cxray stat augmentin for pneumonia will need lab work repeated as well malignancy is in the differential as well- she is a smoker needs to get back in care for her HIV d/w patient d/w Hospitalist she will need to sign AMA with understood risks of worsening pneumonia/sepsis/ if she insists on leaving today AIDS on bactrim for PCP prophylaxis has been out of care for two years
[2017-11-02] MEDS: AZITHROMYCIN IVPB 250 MG in DEXTROSE 5%-WATER - 250 ML IVPB SCH (12:54)
--- NOTE | 2017-11-02 14:02 | DS ---
Physical Examination Vital Signs: Vital Signs Temperature 98.4 F 11/02/17 10:00 Pulse Rate 76 11/02/17 10:00 Respiratory Rate 20 11/02/17 10:00 Blood Pressure 120/80 11/02/17 10:00 O2 Sat by Pulse Oximetry (%) 98 11/01/17 21:00 Labs: CBC, BMP 11/02/17 08:00 11/02/17 08:00 Discharge Summary Reason For Visit: PNEUMONIA FEVER HIV (MRSA) Current Active Problems Acute URI (Acute) Fever (Acute) Human immunodeficiency virus (HIV) disease (Acute) Pneumonia (Acute) Hospital Course: Discussed AMA with patient in depth. The patient has capacity to make her own decisions. Discussed with the patient the plan is to continue to rule out Tb and continue IV antibiotics. First AFB sputum was negative but the quant gold was indeterminate. The patient is aware of the risks regarding leaving the hospital AMA. She is aware that her N95 mask must be worn at all times while around other people. She states her bought a Hepa filter that is now in her bedroom and she will stay in there with her door closed at all times. The patient is aware to not leave her house. The patient is aware of her dropping WBC count and the risks of sepsis and of leaving AMA. She verbalized and understanding of concerning symptoms for which she will immediate go to her nearest emergency room including, but not limited to, fever, chills, nausea, vomiting, rash, dizziness, loss of consciousness, diarrhea, chest pain, difficulty breathing, hemoptysis. Instructed the patient to complete the full course of antibiotics. Discussed with Dr. Beck who will coordinate with the [facility] when the patient should follow-up in the clinic. The patient is aware that the N95 mask must be worn when she goes to the [facility] or any other clinics. The patient is aware that malignancy of the YESY consolidation cannot be ruled out and that she should follow-up with a supervisor front for further evaluation and testing. Condition: Stable - Instructions Diet, Activity, Other Instructions: Please return to the ED with new, persistent, or worsening symptoms. Please follow-up with providers as indicated. Please continue to wear your N95 mask at all times. If you have a fever ( temperature greater than 100.4), blood in your sputum, chest pain, chills, nausea, vomiting, diarrhea, or any other concerning symptoms, please go to your nearest emergency room IMMEDIATELY. Referrals: Osvaldo Cooney MD [Non Staff, Medical] - 1 Week Emy Beck MD [Staff Physician] - (You will receive a call from the [facility] tomorrow to set up your next appointment with Dr. Beck. ) Jack Davis MD [Staff Physician] - (You MUST follow-up with pulmonary within 1 week for further evaluation of your left upper lobe consolidation and for further testing to rule out malignancy. ) Disposition: AGAINST MEDICAL ADVICE - Home Medications Comprehensive Discharge Medication List: Ambulatory Orders Acetaminophen [Tylenol] 650 mg PO QID PRN 10/29/17 Acetaminophen [Tylenol .Regular Strength -] 650 mg PO Q4H PRN tablet 11/02/17 Amoxicillin/Potassium Clav [Augmentin 875-125 Tablet] 1 each PO BID #14 tablet 11/02/17 Nystatin Oral Suspension - [Nystatin Oral Susp 170300 Units/5 ML -] 500,000 units PO Q6HPO #30 cup 11/02/17 Sulfamethoxazole/Trimethoprim [Bactrim DS -] 1 each PO MoWeFr@1000 #30 tablet Valacyclovir HCl [Valtrex -] 1,000 mg PO BID #7 tablet 11/02/17
--- NOTE | 2017-11-03 18:10 | HOSP ---
Physical Examination Vital Signs: Vital Signs Temperature 98.4 F 11/02/17 10:00 Pulse Rate 76 11/02/17 10:00 Respiratory Rate 20 11/02/17 10:00 Blood Pressure 120/80 11/02/17 10:00 O2 Sat by Pulse Oximetry (%) 98 11/02/17 09:00 Findings/Remarks: Several attempts made to contact the patient ([phone]). Left message on voicemail informing patient of her appointment tomorrow with Dr. Scott at 10am and to please call the office ([phone]) if she has any questions. Labs: CBC, BMP 11/02/17 08:00 11/02/17 08:00
--- NOTE | 2017-11-04 09:40 | HOSP ---
Physical Examination Vital Signs: Vital Signs Temperature 98.4 F 11/02/17 10:00 Pulse Rate 76 11/02/17 10:00 Respiratory Rate 20 11/02/17 10:00 Blood Pressure 120/80 11/02/17 10:00 O2 Sat by Pulse Oximetry (%) 98 11/02/17 09:00 Findings/Remarks: Spoke to the patient, she reports she is aware of her appointment with Dr. Scott tomorrow, 11/04 at 9:30am and that she will be attending. She reports she "feels better" Labs: CBC, BMP 11/02/17 08:00 11/02/17 08:00
== END 2017-11-02 15:28 | disposition left against medical advice (07) | DRG 892 ==
LOC: JER 19:03 → JERBED 10-30 00:55 → J6S 10-30 15:29
PROVIDERS: ADMIT Internal Medicine; ATTEND Registered Nurse
DX: A41.9 Sepsis, unspecified organism (principal); B20 Human immunodeficiency virus [HIV] disease; B37.0 Candidal stomatitis; J18.9 Pneumonia, unspecified organism; J06.9 Acute upper respiratory infection, unspecified; D72.819 Decreased white blood cell count, unspecified; F17.210 Nicotine dependence, cigarettes, uncomplicated; R64 Cachexia; Z68.1 Body mass index [BMI] 19.9 or less, adult; B00.1 Herpesviral vesicular dermatitis
CPT/HCPCS: 36415; 71045-TC-FY; 71046-TC-FY; 71260-TC; 80048; 80053; 81003; 81015; 82728; 83540; 83550; 83605; 84703; 85025; 86359; 86360; 86480; 87040; 87070; 87086; 87116; 87205; 87206; 87536; 87556; 87804; 87899; 93005; 93010; 99283-25; J1644; J7030

== ENCOUNTER 2018-07-01 08:51 | Day surgery (SDC) | payer OTHER ==
[2018-06-30 09:39] VITALS: BMI 20.3
[2018-07-01 09:10] LABS: BASO % 0.6 % (0-2.0); EOS % 1.1 % (0-4.5); HEMATOCRIT 36.9 % (32.4-45.2); HEMOGLOBIN 12.3 GM/dL (10.7-15.3); LYMPH % 35.5 % (8-40); MCH 25.7 pg (25.7-33.7); MCHC 33.3 g/dl (32.0-36.0); MEAN CELL VOLUME 77.2 fl (80-96); MEAN PLT VOLUME 7.3 fl (7.5-11.1); MONO % 9.5 % (3.8-10.2); NEUT % 53.3 % (42.8-82.8); PLATELET COUNT 288 K/MM3 (134-434); RBC 4.77 M/mm3 (3.60-5.2); RDW 19.5 % (11.6-15.6); WHITE BLOOD COUNT 3.2 K/mm3 (4.0-10.0)
[2018-07-01 09:39] LABS: ALBUMIN 3.2 g/dl (3.4-5.0); ALK PHOS 102 U/L (45-117); ANION GAP 6 MMOL/L (8-16); BILIRUBIN,TOTAL 0.4 mg/dL (0.2-1); BLOOD UREA NITROGEN 16 mg/dL (7-18); CALCIUM 8.5 mg/dL (8.5-10.1); CHLORIDE 107 mmol/L (98-107); CO2 24 mmol/L (21-32); CREATININE 0.7 mg/dL (0.55-1.3); GLUCOSE,RANDOM 71 mg/dL (74-106); POTASSIUM 4.2 mmol/L (3.5-5.1); SGOT/AST 16 U/L (15-37); SGPT/ALT 11 U/L (13-61); SODIUM 138 mmol/L (136-145); TOT PROT 8.7 g/dl (6.4-8.2)
[2018-07-01] MEDS ORDERED: IBUPROFEN 800 MG/8 ML IJ IVPB PRN (10:35)
[2018-07-01] MEDS ORDERED: ACETAMINOPHEN 325 MG TABLET (FP) PO PRN (10:35)
--- NOTE | 2018-07-01 10:35 | HP ---
History & Physical Update - History History: No Change - Physical Physical: No Change - Assessment Assessment: No Change - Plan Plan: No Change (Agree with H&P from 06/29/18 - cervical dysplasia for LEEP)
[2018-07-01] MEDS ORDERED: LACTATED RINGERS SOLUTION 1,000 ML IV SCH (10:45)
[2018-07-01] MEDS ORDERED: oxyCODONE HCL 5 MG TABLET PO PRN (10:53)
[2018-07-01] MEDS ORDERED: ONDANSETRON 4 MG/2 ML VIAL IVPUSH PRN (10:53)
[2018-07-01] MEDS ORDERED: IODINE/POTASSIUM IODIDE 5%/10% 14 ML BOTTLE NR ONE (11:23)
--- NOTE | 2018-07-01 11:55 | OP ---
Operative Note - Note: Operative Date: 07/01/18 Pre-Operative Diagnosis: RAMYA 2/cervical dysplasia, HIV positive Operation: LEEP Post-Operative Diagnosis: Same as Pre-op Surgeon: Minda Jay Anesthesiologist/DOCUMENT PROCESSING SPECIALIST: Cristal Alexander Anesthesia: General (with LMA) Specimens Removed: cervical cone biopsy Operative Report Dictated: Yes
[2018-07-01 12:28] VITALS: TEMP 98.1
[2018-07-01 14:12] VITALS: BP 125/75; PULSE 69
--- NOTE | 2018-07-01 19:58 | OP ---
DATE OF OPERATION: 07/01/2018 PREOPERATIVE DIAGNOSIS: Cervical dysplasia. POSTOPERATIVE DIAGNOSIS: Cervical dysplasia. PROCEDURE: Loop electrosurgical excision procedure cone biopsy. SURGEON: Minda Jay DO ANESTHESIA: General with LMA by Dr. Cristal Alexander. COMPLICATIONS: None. SPECIMENS: Cervical cone biopsy. COUNTS: Sponge and instrument counts correct. DISPOSITION: Stable to PACU. DESCRIPTION OF PROCEDURE: Patient is 38-year-old female who has been seen in the office after having abnormal Pap smear and noted to have high-grade dysplasia on a colposcopy examination and endocervical sampling was negative. She was counseled on her options and elected to undergo a LEEP cone biopsy procedure. Consent for the procedure was signed on June 29, 2018, in the office. Patient was admitted on July 01, 2018, to the hospital and consents were reconfirmed. The patient was taken back to the operating room, given LMA anesthesia, and was placed in the dorsal lithotomy position. A hard timeout was performed. A coated speculum was placed inside the vagina and the cervix was easily visualized. Using a large LEEP loop, a LEEP procedure was performed in the usual fashion in a single pass. The specimen was removed and marked with a stitch at the 12 o'clock position and sent to pathology for permanent evaluation. The surgical bed on the cervix was cauterized with low-level cautery to achieve hemostasis, which was done without difficulty. All instruments were then removed from the vagina. Sponge and instrument counts were reported to be correct. The patient tolerated the procedure well and remained in stable condition in the PACU after the procedure. MINDA JAY DO /[id number]
--- NOTE | 2018-07-02 18:17 | PATH ---
Surgical Pathology Report Patient Name: MAGUE MEYERS [facility]. Rec. #: [id number] /Age/Gender: 1980 (Age: 38) / F Account: [id number] Location: [facility] Taken: 07/01/2018 Received: 07/01/2018 Reported: 07/02/2018 Physicians: Minda Jay M.D. 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 HIGH GRADE DYSPLASIA IDENTIFIED IN ALL FOUR QUADRANTS. ENDOCERVICAL AND ECTOCERVICAL MARGINS ARE POSITIVE FOR HIGH GRADE DYSPLASIA. NO DEFINITIVE INVASION IDENTIFIED. Electronically Signed Shy Parker M.D. Addendum Reported: 07/03/2018 Addendum Diagnosis Extensive glandular involvement by high grade dysplasia identified. This case was discussed with Dr. Jay on July 03, 2018. Shy Parker M.D. Gross Description Received in formalin labeled "LEEP biopsy," is a 1.8 cm in diameter annular portion of soft tissue, consistent with a cervical LEEP cone biopsy. There is a suture present marking the 12:00 aspect of the specimen, per the surgeon. The specimen is partially surfaced by a loya-pink, shiny glistening mucosa. The base is inked blue and the specimen is serially sectioned. The specimen is entirely and sequentially submitted in 4 cassettes as follows: 1-12:00 to 3:00; 2-3:00 to 6:00; 3-6:00 to 9:00; 4-9:00 to 12:00. /07/01/2018 saudi/07/01/2018
== END 2018-07-01 14:14 | disposition home or self-care (01) ==
LOC: JASU-SURG 08:51
PROVIDERS: ATTEND Obstetrics & Gynecology
PROC: 0UBC7ZX Excision of Cervix, Via Natural or Artificial Opening, Diagnostic (ICD-10-PCS; principal; 2018-07-01 10:30)
DX: D06.7 Carcinoma in situ of other parts of cervix (principal)
CPT/HCPCS: 36415; 80053; 84702; 85025; 86850; 86900; 86901; 88307-TC; 94760

== ENCOUNTER 2018-10-18 14:25 | Emergency (ER) | payer OTHER ==
[2018-10-18 14:51] VITALS: BP 109/73; PULSE 65; TEMP 98; BMI 21.2
--- NOTE | 2018-10-18 15:27 | PDOC ---
Suture Removal/Wound Check HPI - History of Present Illness Chief Complaint: Suture/Staple Removal (other) Stated Complaint: REMOVAL OF STITCHES Time Seen by Provider: 10/18/18 15:00 History Source: Yes: Patient Treated at: Other ED - Previous ED Treatment Type of procedure performed on last visit: Yes: Laceration Repair Past History - Past Medical History Allergies/Adverse Reactions: Allergies Allergy/AdvReac Type Severity Reaction Status Date / Time codeine Allergy Intermediate Rash Verified 10/18/18 14:51 Home Medications: Ambulatory Orders Citalopram Hydrobromide [Citalopram HBr] 20 mg PO AM #30 tablet 05/20/18 Quetiapine Fumarate [Seroquel -] 25 mg PO HS 06/30/18 Ibuprofen [Advil -] 400 mg PO PRN PRN 07/01/18 Dolutegravir Sodium [Tivicay] 50 mg PO DAILY #30 tablet 09/24/18 Emtricitabine/Tenofov Alafenam [Descovy 200-25 mg Tablet (Nf)] 1 each PO DAILY # 30 tablet 09/24/18 Ritonavir/Lopinavir Oral Soln [Kaletra Liquid] 10 ml PO DAILY #320 ml 09/24/18 Anemia: No Asthma: No Cancer: No Cardiac Disorders: No CVA: No COPD: No CHF: No Dementia: No Diabetes: No GI Disorders: No Disorders: No HTN: No Hypercholesterolemia: No Liver Disease: No Seizures: No Thyroid Disease: Yes (10/04 thyroid u/s: nodular goiter, suspicious for underlying thyroiditis) - Surgical History Abdominal Surgery: No Appendectomy: No Cardiac Surgery: No Cholecystectomy: No Lung Surgery: No Neurologic Surgery: No Orthopedic Surgery: No - Immunization History Immunization Up to Date: Yes - Suicide/Smoking/Psychosocial Hx Smoking History: Never smoked Have you smoked in the past 12 months: Yes Number of Cigarettes Smoked Daily: 10 Cigars Per Day: 0 'Breaking Loose' booklet given: 10/30/17 Hx Alcohol Use: No Drug/Substance Use Hx: No Substance Use Type: None Hx Substance Use Treatment: No Suture Removal/Wound Check PE - Physical Exam Laceration/Wound Check Symptoms: reports: Pain. denies: Fever, Chills, Redness , Discharge, Bleeding Current Severity Level: Mild Location of Laceration/Wound: right: Leg *Review of Systems - Review of Systems Constitutional: No: Chills, Fever *Physical Exam - Vital Signs Last Vital Signs Temp Pulse Resp BP Pulse Ox 98.0 F 65 18 109/73 99 10/18/18 14:48 10/18/18 14:48 10/18/18 14:48 10/18/18 14:48 10/18/18 14:48 - Physical Exam General Appearance: Yes: Appropriately Dressed. No: Apparent Distress HEENT: positive: Normal Voice Neck: positive: Supple Respiratory/Chest: negative: Respiratory Distress Extremity: positive: Other (4-5 cm linear laceration w/ horizontal matreeses sutures intact, no discharge, surrounding erythema or sig ttp) Integumentary: positive: Dry, Warm Medical Decision Making - Medical Decision Making 10/18/18 15:22 38-year-old female, history of HIV on medication (VL UD, unkown cd4), here for suture removal. Patient s/p lac repair to RLE at [facility] ~ 6 days ago, but decided to come to [facility] for removal. States site mildly painful, but no redness, fever or chills. She well-appearing and stable with well healing laceration to anterior aspect of right leg with sutures with horizontal mattress sutures intact. Given that patient is s/p sutures for only 6 days, will hold off on removing sutures at this time until the appropriate time frame of 8-10 days. Patient states she has a PMD appointment in 3 days and will follow up w/ MD for suture removal *DC/Admit/Observation/Transfer Diagnosis at time of Disposition: Visit for wound check - Discharge Dispostion Disposition: HOME Condition at time of disposition: Good - Referrals - Patient Instructions Additional Instructions: Your wound appears to be healing well. It is too early for sutures to be removed. Usual time frame is 8-10 days. Please follow-up with your PMD in few days as already scheduled for suture removal - Post Discharge Activity
== END 2018-10-18 15:36 | disposition home or self-care (01) ==
LOC: JERFT 14:25
DX: Z48.817 Encounter for surgical aftercare following surgery on the skin and subcutaneous tissue (principal); Z48.02 Encounter for removal of sutures
CPT/HCPCS: 99281-25

== ENCOUNTER 2018-10-23 10:03 | Emergency (ER) | payer OTHER ==
[2018-10-23 10:21] VITALS: BP 100/69; PULSE 68; TEMP 97.6; BMI 22.1
--- NOTE | 2018-10-23 10:39 | PDOC ---
Suture Removal/Wound Check HPI - History of Present Illness Chief Complaint: Suture/Staple Removal(Here) Stated Complaint: REMOVAL OF STITCHES Time Seen by Provider: 10/23/18 10:27 History Source: Yes: Patient Exam Limitations: Yes: No Limitations Treated at: Other ED ([facility]) - Previous ED Treatment Type of procedure performed on last visit: Yes: Laceration Repair Antibiotics Prescribed: No Past History - Travel Traveled outside of the country in the last 30 days: No Close contact w/someone who was outside of country & ill: No - Past Medical History Allergies/Adverse Reactions: Allergies Allergy/AdvReac Type Severity Reaction Status Date / Time codeine Allergy Intermediate Rash Verified 10/23/18 10:18 Home Medications: Ambulatory Orders Bacitracin - [Bacitracin Topical Ointment -] 1 applic TP BID #1 applic 10/22/18 Dolutegravir Sodium [Tivicay] 50 mg PO DAILY #30 tablet 10/22/18 Emtricitabine/Tenofov Alafenam [Descovy 200-25 mg Tablet (Nf)] 1 each PO DAILY # 30 tablet 10/22/18 Anemia: No Asthma: No Cancer: No Cardiac Disorders: No CVA: No COPD: No CHF: No Dementia: No Diabetes: No GI Disorders: No Disorders: No HTN: No Hypercholesterolemia: No Liver Disease: No Seizures: Yes (hyperthyroid) Thyroid Disease: Yes (10/04 thyroid u/s: nodular goiter, suspicious for underlying thyroiditis) - Surgical History Abdominal Surgery: No Appendectomy: No Cardiac Surgery: No Cholecystectomy: No Lung Surgery: No Neurologic Surgery: No Orthopedic Surgery: No - Immunization History Immunization Up to Date: Yes - Suicide/Smoking/Psychosocial Hx Smoking History: Current every day smoker Have you smoked in the past 12 months: Yes Number of Cigarettes Smoked Daily: 2 Cigars Per Day: 0 Information on smoking cessation initiated: No 'Breaking Loose' booklet given: 10/30/17 Hx Alcohol Use: No Drug/Substance Use Hx: No Substance Use Type: None Hx Substance Use Treatment: No Suture Removal/Wound Check PE - Physical Exam Laceration/Wound Check Symptoms: reports: Improved. denies: Fever, Redness, Discharge Location of Laceration/Wound: right: Leg (lower R leg. 5 simple interrupted and [address] sutures in place, No discharge, wound well approximated) *Review of Systems - Review of Systems Constitutional: No: Chills, Fever, Weakness Integumentary: No: Erythema, Pruritus, Rash *Physical Exam - Vital Signs Last Vital Signs Temp Pulse Resp BP Pulse Ox 97.6 F 68 16 100/69 100 10/23/18 10:18 10/23/18 10:18 10/23/18 10:18 10/23/18 10:18 10/23/18 10:18 - Physical Exam General Appearance: Yes: Nourished, Appropriately Dressed. No: Apparent Distress Medical Decision Making - Medical Decision Making 10/23/18 10:40 38-year-old female, history of HIV on medication (VL UD, unkown cd4), here for suture removal. Patient s/p lac repair to RLE at [facility] ~ 11 days ago , but decided to come to [facility] for removal. States site mildly painful, but no redness, fever or chills. She well-appearing and stable with well healing laceration to anterior aspect of right leg with sutures with horizontal mattress sutures intact. Sutures removed today, well approximated DC home I discussed the physical exam findings, ancillary test results and final diagnoses with the patient. I answered all of the patient's questions. The patient was satisfied with the care received and felt comfortable with the discharge plan and treatment plan. The Patient agrees to follow up with the primary care physician/specialist within 24-72 hours. Return precautions were given. *DC/Admit/Observation/Transfer Diagnosis at time of Disposition: Visit for suture removal - Discharge Dispostion Disposition: HOME Condition at time of disposition: Stable Decision to Admit order: No - Referrals Referrals: Emy Beck MD [Primary Care Provider] - - Patient Instructions Printed Discharge Instructions: DI for Suture Removal Additional Instructions: You had your sutures/oskar removed today. Please use mupirocin on the site for the next week. Avoid soaking the area with water for 1 more week as to what the wound fully heal. Follow-up with her primary care doctor as needed Return to the emergency department if you develop fevers, drainage from the site , increased pain, or have any changes in your symptoms. - Post Discharge Activity Forms/Work/School Notes: Back to Work
== END 2018-10-23 11:37 | disposition home or self-care (01) ==
LOC: JERFT 10:03
DX: Z48.02 Encounter for removal of sutures (principal)
CPT/HCPCS: 99281-25

== ENCOUNTER → 2019-02-16 | Outpatient (CLI) | payer OTHER | LOC: YHH 09:57 ==

== ENCOUNTER 2019-06-09 10:00 | Emergency (ER) | payer OTHER ==
[2019-06-09 10:16] VITALS: BP 116/71; PULSE 74; TEMP 97.9; BMI 25.7
--- NOTE | 2019-06-09 10:35 | PDOC ---
History of Present Illness - General Chief Complaint: Injury Stated Complaint: LF FOOT INJURY Time Seen by Provider: 06/09/19 10:28 History Source: Patient Exam Limitations: No Limitations - History of Present Illness Initial Comments: 06/09/19 10:34 Patient states missed last step on stairs 5 days ago causing her to fall striking and inverting/hyperflexing her left ankle. States heard a crack and a pop. Was hoping was only sprained and avoiding emergency department visit. Patient is unable to bear weight on the leg since injury. Occurred: reports: just prior to arrival, other (5 days ago) Severity: reports: moderate, severe Pain Location: reports: lower extremity (left ankle ) Modifying Factors: improves with: cold therapy Loss of Consciousness: no loss of consciousness Associated Symptoms (Fall): denies symptoms Past History - Travel Traveled outside of the country in the last 30 days: No Close contact w/someone who was outside of country & ill: No - Past Medical History Allergies/Adverse Reactions: Allergies Allergy/AdvReac Type Severity Reaction Status Date / Time codeine Allergy Intermediate Rash Verified 06/09/19 10:13 Home Medications: Ambulatory Orders Bacitracin - [Bacitracin Topical Ointment -] 1 applic TP BID #1 applic 10/22/18 Permethrin [Nix] 1 ml TP ONCE #1 bottle 02/02/19 Citalopram Hydrobromide [Celexa -] 20 mg PO DAILY #30 tablet 02/18/19 Penicillin V Potassium [Pen Vee K -] 500 mg PO TID #21 tablet 02/18/19 Quetiapine Fumarate [Seroquel -] 25 mg PO HS #30 tablet 02/18/19 Blood Pressure Test Kit [Blood Pressure Kit] 1 each MC DAILY #1 kit 05/25/19 Dolutegravir Sodium [Tivicay] 50 mg PO DAILY #30 tablet 05/25/19 Emtricitabine/Tenofov Alafenam [Descovy 200-25 mg Tablet (Nf)] 1 each PO DAILY # 30 tablet 05/25/19 Tramadol HCl 50 mg PO Q6H PRN #10 tablet MDD 4 06/09/19 Anemia: No Asthma: No Cancer: No Cardiac Disorders: No CVA: No COPD: No CHF: No Dementia: No Diabetes: No GI Disorders: No Disorders: No HTN: No Hypercholesterolemia: No Liver Disease: No Seizures: No Thyroid Disease: Yes (,tsh normal 2017) - Surgical History Abdominal Surgery: No Appendectomy: No Cardiac Surgery: No Cholecystectomy: No Lung Surgery: No Neurologic Surgery: No Orthopedic Surgery: No - Immunization History Immunization Up to Date: Yes - Psycho Social/Smoking Cessation Hx Smoking History: Never smoked Have you smoked in the past 12 months: Yes Number of Cigarettes Smoked Daily: 2 Cigars Per Day: 0 Information on smoking cessation initiated: No 'Breaking Loose' booklet given: 10/30/17 Hx Alcohol Use: No Drug/Substance Use Hx: No Substance Use Type: None Hx Substance Use Treatment: No Review of Systems - Review of Systems Able to Perform ROS?: Yes Is the patient limited Estonian proficient: Yes Constitutional: Yes: Symptoms Reported, See HPI, Malaise. No: Fever HEENTM: Yes: See HPI. No: Symptoms Reported Musculoskeletal: Yes: Symptoms Reported, See HPI, Joint Pain, Joint Swelling Integumentary: Yes: Symptoms Reported, See HPI, Bruising Neurological: Yes: Symptoms reported, See HPI, Numbness, Tingling (to toes ) All Other Systems: Reviewed and Negative *Physical Exam - Vital Signs Last Vital Signs Temp Pulse Resp BP Pulse Ox 97.9 F 74 16 116/71 97 06/09/19 10:13 06/09/19 10:13 06/09/19 10:13 06/09/19 10:13 06/09/19 10:13 - Physical Exam General Appearance: Yes: Nourished, Appropriately Dressed, Apparent Distress, Mild Distress, Moderate Distress HEENT: positive: ANA, Normal ENT Inspection, TMs Normal, Pharynx Normal Neck: positive: Supple. negative: Tender Respiratory/Chest: positive: Lungs Clear, Normal Breath Sounds Gastrointestinal/Abdominal: positive: Soft Extremity: positive: Normal Capillary Refill, Normal Inspection, Normal Range of Motion, Swelling Integumentary: positive: Ecchymosis, Bruising Neurologic: positive: portfolio director II-XII NML intact, Fully Oriented, Alert, Normal Mood/ Affect ED Progress Note - Progress Note Progress Note: 06/09/19 17:09 Comminuted fracture of the distal fibula, sugar tong splint placed Ortho-Glass, patient encouraged to follow-up with orthopedist this week for possible splinting/casting. Discharge - Discharge Information Problems reviewed: Yes Clinical Impression/Diagnosis: Fracture of distal end of fibula Qualifiers: Encounter type: initial encounter Fracture type: closed Fracture morphology: torus Laterality: left Qualified Code(s): S82.822A - Torus fracture of lower end of left fibula, initial encounter for closed fracture Condition: Stable Disposition: HOME - Admission No - Additional Discharge Information Prescriptions: Tramadol HCl 50 mg PO Q6H PRN #10 tablet MDD 4 PRN Reason: Pain - Follow up/Referral Referrals: Oracio Gómez MD [Staff Physician] - - Patient Discharge Instructions Patient Printed Discharge Instructions: Fibula Shaft Fracture Additional Instructions: Rest, ice to area on and off for 15 minutes 4-6 times a day Avoid heavy lifting or exercise until pain and swelling is resolved or until further directed Keep area highly elevated to reduce swelling Use splints/Barrett wrap as directed Followup with orthopedist in one to 2 days if not improving, if significantly improved may wait one week for followup with orthopedist May use ibuprofen every 6 hours as needed for pain Percocet 1 tablet every 6 hours as needed for severe pain - Post Discharge Activity Work/Back to School Note: Back to Work
[2019-06-09] MEDS ORDERED: IBUPROFEN 400 MG TABLET (FP) PO ONE (12:10)
== END 2019-06-09 12:29 | disposition home or self-care (01) ==
LOC: JERFT 10:00
PROC: 2W3RX1Z Immobilization of Left Lower Leg using Splint (ICD-10-PCS; principal; 2019-06-09)
DX: S82.822A Torus fracture of lower end of left fibula, initial encounter for closed fracture (principal); W10.8XXA Fall (on) (from) other stairs and steps, initial encounter; Y93.89 Activity, other specified; Y92.89 Other specified places as the place of occurrence of the external cause; Y99.8 Other external cause status
CPT/HCPCS: 73610-TC-LT-FY; 73630-TC-LT; 99283-25

== ENCOUNTER 2021-05-29 10:29 | Emergency (ER) | payer OTHER ==
[2021-05-29 11:05] VITALS: TEMP 98; BMI 26.5
[2021-05-29] MEDS ORDERED: SODIUM CHLORIDE 0.9% 500 ML INFUS.BAG IV ONE ×2 (11:20→14:55)
[2021-05-29] MEDS ORDERED: DEXAMETHASONE SOD PHOSPHATE 10 MG/1 ML VIAL IVPUSH ONE (11:20)
[2021-05-29] MEDS ORDERED: ONDANSETRON 4 MG/2 ML VIAL IVPUSH ONE ×2 (11:20→14:55)
[2021-05-29] MEDS ORDERED: DEXAMETHASONE SOD PHOSPHATE 10 MG/1 ML VIAL ONE (11:34)
[2021-05-29] MEDS ORDERED: ONDANSETRON 4 MG/2 ML VIAL ONE (11:35)
[2021-05-29] MEDS ORDERED: FAMOTIDINE 20 MG/50 ML IVPB 20 MG/50 ML MG IVPB ONE (11:49)
[2021-05-29] MEDS ORDERED: ACETAMINOPHEN 1000 MG/100 ML VIAL IVPB ONE (11:55)
[2021-05-29] MEDS ORDERED: ACETAMINOPHEN INJECTION 100 ML IVPB ONE (12:05)
[2021-05-29] MEDS ORDERED: FAMOTIDINE/PF 20 MG/2 ML VIAL IVPB ONE (12:15)
[2021-05-29 12:35] LABS: HEMATOCRIT 43.1 % (32.4-45.2); HEMOGLOBIN 14.4 GM/dL (10.7-15.3); MCH 30.3 pg (25.7-33.7); MCHC 33.5 g/dl (32.0-36.0); MEAN CELL VOLUME 90.2 fl (80-96); MEAN PLT VOLUME 8.3 fl (7.5-11.1); PLATELET COUNT 209 10^3/uL (134-434); RBC 4.77 M/mm3 (3.60-5.2); RDW 13.2 % (11.6-15.6); WHITE BLOOD COUNT 10.9 K/mm3 (4.0-10.0)
[2021-05-29 12:48] LABS: CHLORIDE 111 mmol/L (98-107); SODIUM 139 mmol/L (136-145)
[2021-05-29 12:50] LABS: CALCIUM 8.8 mg/dL (8.5-10.1)
[2021-05-29 12:51] LABS: ALBUMIN 3.7 g/dl (3.4-5.0); ANION GAP 11 MMOL/L (8-16); BLOOD UREA NITROGEN 7.2 mg/dL (7-18); CO2 17 mmol/L (21-32); GLUCOSE,RANDOM 107 mg/dL (74-106)
[2021-05-29 12:54] LABS: CREATININE 0.8 mg/dL (0.55-1.3); SGOT/AST 24 U/L (15-37); SGPT/ALT 17 U/L (13-61)
[2021-05-29 12:56] LABS: BILIRUBIN,TOTAL 0.7 mg/dL (0.2-1); TOT PROT 8.2 g/dl (6.4-8.2)
[2021-05-29 12:57] LABS: ALK PHOS 115 U/L (45-117)
[2021-05-29 13:12] LABS: ANISOCYTOSIS 1+; MACROCYTOSIS 0; PLATELET ESTIMATE NORMAL
[2021-05-29 15:43] VITALS: BP 168/98; PULSE 79
== END 2021-05-29 17:02 | disposition home or self-care (01) ==
LOC: JER 10:29
PROC: 3E0333Z Introduction of Anti-inflammatory into Peripheral Vein, Percutaneous Approach (ICD-10-PCS; principal; 2021-05-29)
PROC: 3E033GC Introduction of Other Therapeutic Substance into Peripheral Vein, Percutaneous Approach (ICD-10-PCS; 2021-05-29)
PROC: 3E033GC Introduction of Other Therapeutic Substance into Peripheral Vein, Percutaneous Approach (ICD-10-PCS; 2021-05-29)
DX: R11.10 Vomiting, unspecified (principal); R19.7 Diarrhea, unspecified
CPT/HCPCS: 36415; 71045-TC-FY; 80053; 82550; 82728; 83615; 83690; 84484; 84703; 85025; 86140; 87804; 93005; 93010; 99285-25; C9803; J0131; U0003; U0005